=== PATIENT | male | born 1975 | race African-American/Black ===

== ENCOUNTER 2016-07-04 01:45 | Inpatient (IN) | payer OTHER ==
--- NOTE | 2016-07-04 01:58 | PDOC ---
History of Present Illness - General History Source: Patient Exam Limitations: No Limitations - History of Present Illness Initial Comments: 07/04/16 02:18 The patient is a 40 year old male with significant past medical history of hypertension and recent diagnosis from last admission (06/27/16) of pneumonia, CHF , and COPD who presents to the ED with 3 days of worsening productive cough and SOB. Patient was seen here in the ER on 06/27 for SOB and palpitations. At the time, he was admitted for pneumonia and CHF where he was worked-up and diagnosed with pneumonia, chf, and copd. He was treated and discharged on 06/30. He returns today for worsening productive cough with yellow sputum and SOB. Patient denies fever, chills, diaphoresis, lightheadedness, leg swelling, or chest pain. He reports taking his medications that he was prescribed from his last admission except the antibiotics. Admits to having a cigarettes 2 days ago. Patient reports he is feeling a little better than his original presentation from his last visit. He is now able to lay down as compared to his previous admission. The patient denies abdominal pain, nausea, vomiting, and diarrhea. Allergies: NKDA Social History: Current smoker (PPD), etoh use. Past Surgical History: None reported PCP: Dr. Jarrod Pichardo <Ernestina Richter - Last Filed: 07/04/16 02:52> - General History Source: Patient <KaceySharriDevon - Last Filed: 07/04/16 03:32> - General Stated Complaint: DIFFICULTY BREATHING,COUGHING Time Seen by Provider: 07/04/16 01:56 Past History <Ernestina Richter - Last Filed: 07/04/16 02:52> - Past Medical History HTN: Yes - Psycho/Social/Smoking Cessation Hx Suicidal Ideation: No Smoking History: Current every day smoker Have you smoked in the past 12 months: No Number of Cigarettes Smoked Daily: 20 'Breaking Loose' booklet given: 06/27/16 Hx Alcohol Use: Yes (BEERS/ALCOHOL-06/26/16) Drug/Substance Use Hx: No Substance Use Type: Alcohol <Devon Barreto - Last Filed: 07/04/16 03:32> - Past Medical History Allergies/Adverse Reactions: Allergies Allergy/AdvReac Type Severity Reaction Status Date / Time No Known Allergies Allergy Verified 07/04/16 01:59 Home Medications: Ambulatory Orders Mineral Oil/Pet Hy-Phl [Aquaphor -] 1 applic TP BID #1 jar 06/29/16 Thiamine HCl [Vitamin B1 -] 100 mg PO BID #0 tablet 06/29/16 Amlodipine Besylate [Norvasc -] 10 mg PO DAILY #30 06/30/16 Ferrous Sulfate [Feosol] 325 mg PO BID #60 tablet 06/30/16 Review of Systems - Review of Systems Able to Perform ROS?: Yes Comments:: 07/04/16 02:18 CONSTITUTIONAL: Absent: fever, chills, diaphoresis, generalized weakness, malaise, loss of appetite HEENT: Absent: rhinorrhea, nasal congestion, throat pain, throat swelling, difficulty swallowing, mouth swelling, ear pain, eye pain, visual Changes CARDIOVASCULAR: Absent: chest pain, syncope, palpitations, irregular heart rate, lightheadedness , peripheral edema RESPIRATORY: +SOB and productive cough with yellow sputum Absent: dyspnea with exertion, orthopnea, wheezing, stridor, hemoptysis GASTROINTESTINAL: Absent: abdominal pain, abdominal distension, nausea, vomiting, diarrhea, constipation, melena, hematochezia GENITOURINARY: Absent: dysuria, frequency, urgency, hesitancy, hematuria, flank pain, genital pain MUSCULOSKELETAL: Absent: myalgia, arthralgia, joint swelling SKIN: Absent: rash, itching, pallor NEUROLOGIC: Absent: headache, focal weakness or paresthesias, dizziness, unsteady gait, seizure, mental status changes, bladder or bowel incontinence PSYCHIATRIC: Absent: anxiety, depression, suicidal or homicidal ideation, hallucinations. <Ernestina Richter - Last Filed: 07/04/16 02:52> *Physical Exam - Vital Signs Last Vital Signs Temp Pulse Resp BP Pulse Ox 98.3 F 130 H 28 H 154/103 93 L 07/04/16 02:00 07/04/16 02:00 07/04/16 02:00 07/04/16 02:00 07/04/16 02:00 - Physical Exam Comments: 07/04/16 02:18 GENERAL: Well developed, well nourished. Awake and alert. No acute distress. HEENT: Normocephalic, atraumatic. PERRLA, EOMI. No conjunctival pallor. Sclera are non- icteric. Moist mucous membranes. Oropharynx is clear. NECK: Supple. Full ROM. No JVD. Carotid pulses 2+ and symmetric, without bruits. No thyromegaly. No lymphadenopathy. CARDIOVASCULAR: Tachycardia. Regular rhythm. No murmurs, rubs, or gallops. Distal pulses are 2+ and symmetric. PULMONARY: Moderate respiratory distress. Decreased breath sounds bilaterally. Mild conversational dyspnea. Scattered wheezing. No rales or rhonchi. ABDOMINAL: Soft. Non-tender. Non-distended. No rebound or guarding. No organomegaly. Normoactive bowel sounds. MUSCULOSKELETAL Normal range of motion at all joints. No bony deformities or tenderness. No CVA tenderness. EXTREMITIES: No cyanosis. No clubbing. No edema. No calf tenderness. SKIN: Warm and dry. Normal capillary refill. No rashes. No jaundice. NEUROLOGICAL: Alert, awake, appropriate. Cranial nerves 2-12 intact. Moving all extremities. No gross focal neurological deficits. PSYCHIATRIC: Cooperative. Good eye contact. Appropriate mood and affect. <Ernestina Richter - Last Filed: 07/04/16 02:52> Heart Score/ECG Review - ECG Impressions Comment:: 07/04/16 02:52 Sinus tachycardia @121bpm Possible left atrial enlargement Left ventricular hypertrophy with repolarization abnormality Abnormal ECG <Ernestina Richter - Last Filed: 07/04/16 02:52> ED Treatment Course - LABORATORY CBC & Chemistry Diagram: 07/04/16 02:10 07/04/16 02:10 <Ernestina Richter - Last Filed: 07/04/16 02:52> - LABORATORY CBC & Chemistry Diagram: 07/04/16 02:10 07/04/16 02:10 <Devon Barreto - Last Filed: 07/04/16 03:32> Medical Decision Making - Medical Decision Making 07/04/16 03:13 Dr. Barreto: The scribe's documentation has been prepared under my direction and personally reviewed by me in its entirery. I confirm that the note above accurately reflects all work, treatment, procedures, and medical decision making performed by me. Pt returns with similar symptoms of the chf and pneumonia as he had his last admission. Pt states he was not able to afford the antibiotic. Will readmit 07/04/16 03:31 Pt IV access has been difficult. Pt will have PICC line placed in the morning. Hospitalist service aware <Devon Barreto - Last Filed: 07/04/16 03:32> *DC/Admit/Observation/Transfer - Attestations Scribe Attestion: 07/04/16 02:18 Documentation prepared by Ernestina Richter, acting as certified medical transcriptionist for Devon Barreto MD <Ernestina Richter - Last Filed: 07/04/16 02:52> - Discharge Dispostion Admit: Yes <Devon Barreto - Last Filed: 07/04/16 03:32> Diagnosis at time of Disposition: Acute eczema CHF (congestive heart failure) Qualifiers: Congestive heart failure chronicity: acute on chronic Pneumonia Qualifiers: Pneumonia type: due to unspecified organism Laterality: bilateral Lung location : lower lobe of lung Qualified Code(s): J18.9 - Pneumonia, unspecified organism - Referrals Referrals: Jarrod Pichardo MD [Primary Care Provider] -
[2016-07-04] MEDS ORDERED: methylPREDNISolone NA SUCC 125 MG/2 ML VIAL IVPB ONE (01:59)
[2016-07-04] MEDS ORDERED: ALBUTEROL SO4 2.5/IPRATROPIUM 0.5 INH SOL 3 ML VIAL.NEB. NEB STA ×2 (01:59→03:50)
[2016-07-04] MEDS ORDERED: FUROSEMIDE 40 MG/4 ML INJECTABLE VIAL IVPUSH ONE (01:59)
[2016-07-04] MEDS ORDERED: LEVOFLOXACIN 750 MG IVPB 150 ML IVPB ONE (02:00)
[2016-07-04] MEDS ORDERED: methylPREDNISolone NA SUCC 125 MG/2 ML VIAL ONE (02:07)
[2016-07-04] MEDS ORDERED: FUROSEMIDE 40 MG/4 ML INJECTABLE VIAL ONE (02:07)
[2016-07-04 02:15] VITALS: BMI 24.4
[2016-07-04 02:37] LABS: EOSINOPHIL 2.9 % (0-4.5); MCH 32.1 pg (25.7-33.7); MCHC 32.6 g/dl (32.0-35.9); MEAN CELL VOLUME 98.4 fl (80-96); MEAN PLT VOLUME 7.9 fl (7.5-11.1); NEUTROPHILS 69.9 % (42.8-82.8); PLATELET COUNT 437 K/MM3 (134-434); WHITE BLOOD COUNT 10.1 K/mm3 (4.0-10.0)
[2016-07-04] MEDS ORDERED: FUROSEMIDE 20 MG TABLET (FP) PO ONE (02:40)
[2016-07-04] MEDS ORDERED: LEVOFLOXACIN 250 MG TABLET (FP) PO ONE (02:41)
[2016-07-04] MEDS ORDERED: predniSONE 20 MG TABLET (UD) PO ONE (02:41)
[2016-07-04 02:44] LABS: INR 1.06 (0.82-1.09); PROTHROMBIN TIME (PATIENT) 11.7 SEC (9.98-11.88)
[2016-07-04 02:54] LABS: ALBUMIN 2.3 g/dl (3.4-5.0); ANION GAP 12 (8-16); BILIRUBIN,TOTAL 0.2 mg/dL (0.2-1.0); CO2 24 mmol/L (21-32); CREATININE 0.9 mg/dL (0.7-1.3); GLUCOSE,RANDOM 96 mg/dL (74-106); MAGNESIUM 1.6 mg/dL (1.8-2.4); SGOT/AST 24 U/L (15-37); SGPT/ALT 17 U/L (12-78); TOT PROT 7.6 g/dl (6.4-8.2)
[2016-07-04 02:57] LABS: ALK PHOS 75 U/L (45-117); TROPONIN I 0.02 ng/ml (0.00-0.05)
[2016-07-04] MEDS ORDERED: predniSONE 20 MG TABLET (UD) ONE (03:03)
[2016-07-04] MEDS ORDERED: LEVOFLOXACIN 500 MG TABLET (FP) ONE (03:04)
[2016-07-04] MEDS ORDERED: LEVOFLOXACIN 250 MG TABLET (FP) ONE (03:04)
[2016-07-04] MEDS ORDERED: FUROSEMIDE 40 MG TABLET (FP) ONE (03:04)
[2016-07-04] MEDS ORDERED: POTASSIUM CHLORIDE TABS 20 MEQ TABLET.ER (FP) PO ONE ×3 (03:17→10:00)
--- NOTE | 2016-07-04 03:26 | PN ---
<Coy Perez - Last Filed: 07/04/16 04:24> Teaching Attending Note ATTENDING PHYSICIAN STATEMENT I saw and evaluated the patient. I reviewed the resident's note and discussed the case with the resident. I agree with the resident's findings and plan as documented. SUBJECTIVE: The patient is a 40 year old male, current smoker, with significant past medical history of eczema, microcytic anemia, EtOH abuse,who presents to the ED with 3 days of worsening productive cough and SOB. Recent admission on 06/27/16 for pneumonia. The patient reported that his cough produces yellow sputum. Patient was unable to finish his PO antibiotics prescribed from his previous admission due to his inability to afford the. The patient denies abdominal pain, nausea, vomiting, and diarrhea, fever, chills , diaphoresis, lightheadedness, leg swelling, or chest pain. OBJECTIVE: Vital Signs: Last Vital Signs Temp Pulse Resp BP Pulse Ox 98.3 F 130 H 28 H 154/103 93 L 07/04/16 02:00 07/04/16 02:00 07/04/16 02:00 07/04/16 02:00 07/04/16 02:00 Physical Exam: GEN: NAD HEENT: NCAT, PERRL CARD: Tachycardic S1 S2 RESP: CTAB ABD: NT, BWS x4 EXT: - CCE SKIN: Diffuse eczema bilateral upper and lower extremities. Labs: CBCD WBC 10.1 K/mm3 (4.0-10.0) H D 07/04/16 02:10 RBC 2.79 M/mm3 (4.00-5.60) L 07/04/16 02:10 Hgb 9.0 GM/dL (11.7-16.9) L 07/04/16 02:10 Hct 27.4 % (35.4-49) L 07/04/16 02:10 MCV 98.4 fl (80-96) H 07/04/16 02:10 MCHC 32.6 g/dl (32.0-35.9) 07/04/16 02:10 RDW 17.0 % (11.9-15.9) H 07/04/16 02:10 Plt Count 437 K/MM3 (134-434) H D 07/04/16 02:10 MPV 7.9 fl (7.5-11.1) 07/04/16 02:10 CMP Sodium 142 mmol/L (136-145) 07/04/16 02:10 Potassium 3.2 mmol/L (3.5-5.1) L 07/04/16 02:10 Chloride 106 mmol/L (98-107) 07/04/16 02:10 Carbon Dioxide 24 mmol/L (21-32) 07/04/16 02:10 Anion Gap 12 (8-16) 07/04/16 02:10 BUN 4 mg/dL (7-18) L D 07/04/16 02:10 Creatinine 0.9 mg/dL (0.7-1.3) 07/04/16 02:10 Creat Clearance w eGFR > 60 (>60) 07/04/16 02:10 Calcium 8.0 mg/dL (8.5-10.1) L 07/04/16 02:10 Total Bilirubin 0.2 mg/dL (0.2-1.0) D 07/04/16 02:10 AST 24 U/L (15-37) 07/04/16 02:10 ALT 17 U/L (12-78) 07/04/16 02:10 Alkaline Phosphatase 75 U/L (45-117) 07/04/16 02:10 Total Protein 7.6 g/dl (6.4-8.2) D 07/04/16 02:10 Albumin 2.3 g/dl (3.4-5.0) L D 07/04/16 02:10 Imagin.CXR Impression: Bilateral patchy infiltrates and mild congestion. 2. ECG Impression: sinus tachycardia. Possible left atrial enlargement. Left ventricular hypertrophy with repolarization abnormality. Abnormal ECG. ASSESSMENT AND PLAN: The patient is a 40 year old male who presents with sepsis secondary to pneumonia. 1. Sepsis secondary to pneumonia. Questionable hcap. -Questionable atypical pneumonia on CT from prior admission -Continue levaquin for atypical pneumonia as patient to not finishing his treatment -If no improvement consider broadening coverage -Repeat lactic acid -Galvez culture -Patient unwilling to get central line -Picc line in AM for IV antibiotics -Urine legionella analysis negative -ID consult if worsening 2. CHF? -IV lasix -Strict I&O -Daily weights -Echo complete -Sodium diet 3. History of EtOH dependence -Finish librium protocol 4. Eczema -Continue bactroban, triamcinolone, aquaphor 5. HTN -Continue Amlodipine 6. Macrocytic anemia -Monitor -Continue Thymine 7. DVT PPX-low risk Heparin 5000 Q8H Admit to med tele. Documentation prepared by Coy Perez, acting as medical consultant for Dr. Jerald Jerez MD. <Jerald Jerez - Last Filed: 07/04/16 06:16> Teaching Attending Note Name of Resident: Autumn Garzon
[2016-07-04] MEDS ORDERED: METOPROLOL SUCCINATE 25 MG TAB.SR.24H (FP) PO ONE (03:58)
[2016-07-04] MEDS ORDERED: MAGNESIUM OXIDE 400 MG TABLET (FP) PO ONE (03:58)
--- NOTE | 2016-07-04 04:06 | HP ---
CHIEF COMPLAINT: Worsening cough and shortness of breath PCP: Dr. Jarrod Fregoso HISTORY OF PRESENT ILLNESS: Patient is a 40 year old male who presented to the ED with the chief complaints of worsening shortness of breath and cough since this morning. Patient was discharged on 06/27/2016 with the diagnosis of pneumonia, was discharged on Levaquin and to f/up with the primary doctor within a week. However, patient mentioned he never took Levaquin since he couldn't afford 200 $ for the medication. Says he didn't follow up with his primary. Until this morning, patient mentions he was fine. But started having dry cough with worsening shortness of breath at rest and exertion. No orthopnea or PND. Also reports to have chills and rigors but no fever. Denies chest pain, palpitation, abdominal pain, nausea or vomiting. Bowel/bladder habit normal. Sleep/Appetite normal. ER course was notable for: (1) Afebrile, Tachycardic 130bpm, Hypertensive 154/103, 28 RR, Spo2-93 (2) Hypokalemia 3.2; Hypomagnesemia 1.6, BNP 4760.55 (3) No IV access. Received PO Lasix 60mg, K-Dur 40mg, Prednisone 60mg, Duoneb Recent Travel: None PAST MEDICAL HISTORY: Hypertension, CHF, COPD, Pneumonia, Eczema, alcohol dependence PAST SURGICAL HISTORY: None Social History: Smoking: Quit 2 days ago, smoked 7-10 cigs/day Alcohol: Quit 2 weeks ago, went for detox Drugs: Denies Family History: Mother and father both have Hypertension Allergies No Known Allergies Allergy (Verified 07/04/16 01:59) HOME MEDICATIONS: Home Medications Medication Instructions Recorded Mineral Oil/Pet Hy-Phl [Aquaphor -] 1 applic TP BID #1 jar 06/29/16 Thiamine HCl [Vitamin B1 -] 100 mg PO BID #0 tablet 06/29/16 Amlodipine Besylate [Norvasc -] 10 mg PO DAILY #30 06/30/16 Ferrous Sulfate [Feosol] 325 mg PO BID #60 tablet 06/30/16 REVIEW OF SYSTEMS CONSTITUTIONAL: Present: Chills, rigors Absent: fever,diaphoresis, generalized weakness, malaise, loss of appetite, weight change HEENT: Absent: rhinorrhea, nasal congestion, throat pain, throat swelling, difficulty swallowing, mouth swelling, ear pain, eye pain, visual changes CARDIOVASCULAR: Absent: chest pain, syncope, palpitations, irregular heart rate, lightheadedness , peripheral edema RESPIRATORY:] Present: cough, shortness of breath, dyspnea with exertion Absent: , orthopnea, wheezing, stridor, hemoptysis GASTROINTESTINAL: Absent: abdominal pain, abdominal distension, nausea, vomiting, diarrhea, constipation, melena, hematochezia GENITOURINARY: Absent: dysuria, frequency, urgency, hesitancy, hematuria, flank pain, genital pain MUSCULOSKELETAL: Absent: myalgia, arthralgia, joint swelling, back pain, neck pain SKIN: Absent: rash, itching, pallor HEMATOLOGIC/IMMUNOLOGIC: Absent: easy bleeding, easy bruising, lymphadenopathy, frequent infections ENDOCRINE: Absent: unexplained weight gain, unexplained weight loss, heat intolerance, cold intolerance NEUROLOGIC: Absent: headache, focal weakness or paresthesias, dizziness, unsteady gait, seizure, mental status changes, bladder or bowel incontinence PSYCHIATRIC: Absent: anxiety, depression, suicidal or homicidal ideation, hallucinations. PHYSICAL EXAMINATION Vital Signs - 24 hr 07/04/16 02:00 Temperature 98.3 F Pulse Rate 130 H Respiratory 28 H Rate Blood Pressure 154/103 O2 Sat by Pulse 93 L Oximetry (%) GENERAL: Patient is normal built, tachypneic, Awake, alert, and fully oriented, in no acute distress. HEAD: Normal with no signs of trauma. EYES: Pupils equal, round and reactive to light, extraocular movements intact, sclera anicteric, conjunctiva clear. No lid lag. EARS, NOSE, THROAT: Ears normal, nares patent, oropharynx clear without exudates. Moist mucous membranes. NECK: Normal range of motion, supple without lymphadenopathy, JVD, or masses. LUNGS: Tachypenic, Breath sounds equal, B/l basilar crackles HEART: Tachycardic, Regular rate and rhythm, normal S1 and S2 without murmur, rub or gallop. ABDOMEN: Soft, nontender, not distended, normoactive bowel sounds, no guarding, no rebound, no masses. No hepatomegaly or splenomegaly. MUSCULOSKELETAL: Normal range of motion at all joints. No bony deformities or tenderness. No CVA tenderness. UPPER EXTREMITIES: 2+ pulses, warm, well-perfused. No cyanosis. No clubbing. Cap refill <2 seconds. No peripheral edema. LOWER EXTREMITIES: 2+ pulses, warm, well-perfused. No calf tenderness. No peripheral edema. NEUROLOGICAL: Cranial nerves II-XII intact. Normal speech. Normal gait. PSYCHIATRIC: Cooperative. Good eye contact. Appropriate mood and affect. SKIN: Warm, dry, cracked skin head to toe Laboratory Results - last 24 hr 07/04/16 07/04/16 07/04/16 02:10 02:10 02:10 WBC 10.1 H D RBC 2.79 L Hgb 9.0 L Hct 27.4 L MCV 98.4 H MCHC 32.6 RDW 17.0 H Plt Count 437 H D MPV 7.9 Neutrophils % 69.9 Lymphocytes % 14.6 D Monocytes % 11.6 H Eosinophils % 2.9 D Basophils % 1.0 INR 1.06 Sodium Potassium Chloride Carbon Dioxide Anion Gap BUN Creatinine Creat Clearance w eGFR Random Glucose Lactic Acid Calcium Magnesium Total Bilirubin AST ALT Alkaline Phosphatase Creatine Kinase Troponin I B-Natriuretic Peptide Total Protein Albumin Lipase Blood Type O POSITIVE Antibody Screen Negative 07/04/16 07/04/16 02:10 02:10 WBC RBC Hgb Hct MCV MCHC RDW Plt Count MPV Neutrophils % Lymphocytes % Monocytes % Eosinophils % Basophils % INR Sodium 142 Potassium 3.2 L Chloride 106 Carbon Dioxide 24 Anion Gap 12 BUN 4 L D Creatinine 0.9 Creat Clearance w eGFR > 60 Random Glucose 96 Lactic Acid 1.724 Calcium 8.0 L Magnesium 1.6 L Total Bilirubin 0.2 D AST 24 ALT 17 Alkaline Phosphatase 75 Creatine Kinase 76 Troponin I 0.02 B-Natriuretic Peptide 4760.55 H Total Protein 7.6 D Albumin 2.3 L D Lipase 124 Blood Type Antibody Screen ASSESSMENT/PLAN: Patient is a 40 year old male with significant past medical history of Hypertension, CHF, COPD, Pneumonia, Eczema, alcohol dependence who presented to the ED with the chief complaints of worsening shortness of breath and cough since this morning. # Sepsis secondary to Community acquired pneumonia Rule out atypical pneumonia CURB 65-1 Patient presented with worsening shortness of breath and cough. Non compliant to levaquin On arrival, Afebrile, Tachycardic 130bpm, Hypertensive 154/103, 28 RR, Spo2- 93 In the ED, after multiple attempts, couldn't find IV access. Received PO Lasix 60mg, K-Dur 40mg, Prednisone 60mg, Duoneb Admitted in non-cardiac Tele Continuous cardiac monitor technician Continue with IV Levaquin since patient didn't complete levaquin Urine legionella analysis negative Mycoplasma IgM ordered Would consider placing a PICC line. # CHF exacerbation Unsure if the shortness of breath is due to worsening pneumonia or due to CHF exacerbation BNP-4760.55 Will order an ECHO since patient didn't have it the last time. # Electrolyte imbalance Hypokalemia 3.2; Hypomagnesemia 1.6 Repleted Repeat at 6am. # Hypertension ordered Metoprolol 25mg stat. Continue Amlodipine 10mg Monitor BP # Alcohol dependence No s/s of withdrawals at this time. Would consider starting him on Librium protocol # COPD- Saturation 93 on arrival, improved with Nasal oxygen Continue nasal oxygen Not on home oxygen Smoking cessation counseling # Eczema Continue Mineral oil Hydrate, moisturize and maintain hygiene # FEN Not on IV fluids Electrolytes to be repeated tomorrow Regular diet # Prophylaxis For DVT: For GI: Not indicated # Code status: Full Code # Dispo: Non cardiac tele. Duration of stay unknown. Illness, Investigation and plan of care explained to the patient. He verbalized understanding. Case seen and discussed with Dr. Jerez. Visit type - Emergency Visit Emergency Visit: Yes ED Registration Date: 07/04/16 Care time: The patient presented to the Emergency Department on the above date and was hospitalized for further evaluation of their emergent condition. - New Patient This patient is new to me today: Yes Date on this admission: 07/04/16 - Critical Care Critical Care patient: No
[2016-07-04] MEDS ORDERED: METOPROLOL SUCCINATE 50 MG TAB.SR.24H (FP) ONE (04:27)
[2016-07-04] MEDS ORDERED: ALBUTEROL SO4 2.5/IPRATROPIUM 0.5 INH SOL 3 ML VIAL.NEB. NEB ONE (04:28)
[2016-07-04] MEDS ORDERED: MAGNESIUM OXIDE 400 MG TABLET (FP) ONE (04:28)
[2016-07-04 06:19] LABS: BASOPHIL 0.4 % (0-2.0); EOSINOPHIL 0.1 % (0-4.5); MCH 31.9 pg (25.7-33.7); MCHC 32.8 g/dl (32.0-35.9); MEAN CELL VOLUME 97.4 fl (80-96); MEAN PLT VOLUME 7.8 fl (7.5-11.1); NEUTROPHILS 91.9 % (42.8-82.8); PLATELET COUNT 440 K/MM3 (134-434); RDW 16.9 % (11.9-15.9); WHITE BLOOD COUNT 8.3 K/mm3 (4.0-10.0)
[2016-07-04 06:20] LABS: URINE APPEARANCE CLEAR; URINE BILIRUBIN NEGATIVE (NEGATIVE); URINE BLOOD NEGATIVE (NEGATIVE); URINE COLOR COLORLESS; URINE GLUCOSE (UA) NEGATIVE (NEGATIVE); URINE KETONE NEGATIVE (NEGATIVE); URINE LEUK ESTERASE NEGATIVE (NEGATIVE); URINE NITRITE NEGATIVE (NEGATIVE); URINE PROTEIN NEGATIVE (NEGATIVE); URINE UROBILINOGEN NEGATIVE E.U./dl (0.2-1.0)
[2016-07-04 06:49] LABS: MAGNESIUM 1.5 mg/dL (1.8-2.4); PHOSPHOROUS 2.8 mg/dL (2.5-4.9)
[2016-07-04 06:52] LABS: ALBUMIN 2.4 g/dl (3.4-5.0); ANION GAP 11 (8-16); BILIRUBIN,TOTAL 0.3 mg/dL (0.2-1.0); CALCIUM 7.9 mg/dL (8.5-10.1); CO2 27 mmol/L (21-32); GLUCOSE,RANDOM 149 mg/dL (74-106); SGOT/AST 19 U/L (15-37); SGPT/ALT 21 U/L (12-78); TOT PROT 7.7 g/dl (6.4-8.2)
[2016-07-04 06:53] LABS: ALK PHOS 66 U/L (45-117)
[2016-07-04] MEDS ORDERED: FUROSEMIDE 40 MG TABLET (FP) PO ONE (09:00)
[2016-07-04] MEDS: THIAMINE HCL 100 MG TABLET (FP) PO SCH ×2 (09:52→21:26)
[2016-07-04] MEDS: FERROUS SO4 325 MG TABLET (FP) PO SCH ×2 (09:52→21:26)
[2016-07-04] MEDS: amLODIPine BESYLATE 10 MG TABLET (FP) PO SCH (09:52)
[2016-07-04] MEDS: LEVOFLOXACIN 750 MG IVPB 150 ML IVPB SCH (09:52)
[2016-07-04] MEDS: HEPARIN NA (PORCINE) 5,000 UNITS/ML 1ML VIAL SQ SCH ×2 (09:53→17:44)
--- NOTE | 2016-07-04 11:55 | PN ---
<Jason Hebert - Last Filed: 07/04/16 12:39> Physical Exam: SUBJECTIVE: Patient seen and examined Pt is awake andlert and oriented no s.s of acute distress no fever or chills, cough no chest or sob Minimal gen weakness no chest pain or palpitation Pt said he did not have insurance to pay for the antibiotics OBJECTIVE: Vital Signs Period Temp Pulse Resp BP Sys/Wright Pulse Ox Last 24 Hr 98.1 F-98.1 F 106-113 19-24 128-130/79-80 100 GENERAL: The patient is awake, alert, and fully oriented, in no acute distress. HEAD: Normal with no signs of trauma. EYES: PERRL, extraocular movements intact, sclera anicteric, conjunctiva clear. No ptosis. ENT: Ears normal, nares patent, oropharynx clear without exudates, moist mucous membranes. NECK: Trachea midline, full range of motion, supple. LUNGS: b/l crackles in bases, b/l scattred rochi. no accessory muscle use. HEART: Regular rate and rhythm, S1, S2 without murmur, rub or gallop. ABDOMEN: Soft, nontender, nondistended, normoactive bowel sounds, no guarding, no rebound, no hepatosplenomegaly, no masses. EXTREMITIES: 2+ pulses, warm, well-perfused, no edema. NEUROLOGICAL: Normal speech, gait not observed. PSYCH: Normal mood, normal affect. SKIN: Warm, dry, poor skin turgor, scaly skin Laboratory Results - last 24 hr 07/04/16 07/04/16 07/04/16 05:38 05:38 05:38 WBC 8.3 RBC 2.81 L Hgb 9.0 L Hct 27.4 L MCV 97.4 H MCHC 32.8 RDW 16.9 H Plt Count 440 H MPV 7.8 Neutrophils % 91.9 H D Lymphocytes % 5.9 L D Monocytes % 1.7 L D Eosinophils % 0.1 D Basophils % 0.4 Sodium Potassium Chloride Carbon Dioxide Anion Gap BUN Creatinine Creat Clearance w eGFR Random Glucose Calcium Phosphorus 2.8 Magnesium 1.5 L Total Bilirubin AST ALT Alkaline Phosphatase Total Protein Albumin Urine Color Urine Appearance Urine pH Ur Specific [place] Urine Protein Urine Glucose (UA) Urine Ketones Urine Blood Urine Nitrite Urine Bilirubin Urine Urobilinogen Ur Leukocyte Esterase Blood Type O POSITIVE 07/04/16 07/04/16 05:38 06:05 WBC RBC Hgb Hct MCV MCHC RDW Plt Count MPV Neutrophils % Lymphocytes % Monocytes % Eosinophils % Basophils % Sodium 142 Potassium 3.2 L Chloride 104 Carbon Dioxide 27 Anion Gap 11 BUN 6 L D Creatinine 1.0 Creat Clearance w eGFR > 60 Random Glucose 149 H D Calcium 7.9 L Phosphorus Magnesium Total Bilirubin 0.3 D AST 19 D ALT 21 D Alkaline Phosphatase 66 Total Protein 7.7 Albumin 2.4 L Urine Color Colorless Urine Appearance Clear Urine pH 6.0 Ur Specific [place] 1.003 Urine Protein Negative Urine Glucose (UA) Negative Urine Ketones Negative Urine Blood Negative Urine Nitrite Negative Urine Bilirubin Negative Urine Urobilinogen Negative Ur Leukocyte Esterase Negative Blood Type Active Medications Generic Name Dose Route Start Last Admin Trade Name Freq PRN Reason Stop Dose Admin Amlodipine Besylate 10 mg 07/04/16 10:00 07/04/16 09:52 Norvasc - PO 10 mg DAILY ARMEN Administration Emollient Ointment 1 applic 07/04/16 10:00 Aquaphor - TP BID ARMEN Ferrous Sulfate 325 mg 07/04/16 10:00 07/04/16 09:52 Feosol - PO 325 mg BID ARMEN Administration Heparin Sodium (Porcine) 5,000 unit 07/04/16 10:00 07/04/16 09:53 Heparin - SQ 5,000 unit Q8H-IV ARMEN Administration Levofloxacin 150 mls @ 100 mls/hr 07/04/16 10:00 07/04/16 09:52 Levaquin 750 Mg Premixed Ivpb - IVPB 100 mls/hr DAILY ARMEN Administration Thiamine HCl 100 mg 07/04/16 10:00 07/04/16 09:52 Vitamin B1 - PO 100 mg BID ARMEN Administration CBC, BMP 07/04/16 05:38 07/04/16 05:38 ASSESSMENT/PLAN: 40 year old male with pmh HTN, Eczema recently admitted for b/l pneumonia discharge on PO Levaquin present with shortness of breath, cough, tachypnea, tachycardia. Pt did not take antibiotics upon discharge. Sepsis from B/l Pneumonia No more shortness of breath, no chest pain, no more cough Pt was non compliant to antibiotics on last discharge Continue IV levaquin 750mg daily will switch to PO Levaquin 750mg PO daily on discharge F/u new Cultures Urine for pneumonia antigens ordered [place] Was tachycardic on last admission Possible causes included sepsis/pneumonia/hypoxia. 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 Mg 1.5 Kcl 40meq Po once MgSO4 1gm IV once HTN BP controlled on Norvasc mg PO daily FEN fluid: none Electrolytes: repeat in am Nutrition: Low Na diet Disposition: discharge in am on PO antibiotics if negative echo and clinically stable Visit type - Emergency Visit Emergency Visit: Yes ED Registration Date: 07/04/16 Care time: The patient presented to the Emergency Department on the above date and was hospitalized for further evaluation of their emergent condition. - New Patient This patient is new to me today: Yes Date on this admission: 07/04/16 - Critical Care Critical Care patient: No - Discharge Referral Referred to [facility] No <Oscar Turcios - Last Filed: 07/04/16 13:37> Physical Exam: ATTENDING PHYSICIAN STATEMENT I saw and evaluated the patient. I reviewed the resident's note and discussed the case with the resident. I agree with the resident's findings and plan as documented. SUBJECTIVE: seen and evaluated at the bedside OBJECTIVE: resting comfortably; mild rhonchi in LLL ASSESSMENT AND PLAN: 40 year old man admitted for community acquired pneumonia -pt failed to fill levofloxacin prescription as an outpatient -now resting comfortably and clinically stable -cont levofloxacin as pt did not fail outpatient therapy -anticipate early discharge
[2016-07-04] MEDS ORDERED: MAGNESIUM SULF 50% (8.12 MEQ/2 ML-1 GM VIAL) IVPB ONE (12:30)
[2016-07-04] MEDS ORDERED: POTASSIUM CHLORIDE 40 MEQ/30 ML UNIT DOSE CUP PO ONE (12:45)
--- NOTE | 2016-07-04 12:48 | CONSULT ---
Consult Consult Specialty:: infectious diseases Reason for Consultation:: pneumonia - History of Present Illness Chief Complaint: sob,cough History of Present Illness: 40 year old male who presented with the chief complaints of worsening shortness of breath and cough since this morning. Patient was discharged on 06/27/2016 with the diagnosis of pneumonia, was discharged on Levaquin and to f/up with the primary doctor within a week. However, patient mentioned he never took Levaquin since he couldn't afford 200 $ for the medication. patient went home and did not follow up with his doctor patient then started having chills with sob and decided to come to the hospital - History Source History Provided By: Patient Limitations to Obtaining History: No Limitations - Past Medical History Dermatology: Yes: Eczema - Alcohol/Substance Use Hx Alcohol Use: Yes (BEERS/ALCOHOL-06/26/16) - Smoking History Smoking history: Current every day smoker Have you smoked in the past 12 months: Yes Aproximately how many cigarettes per day: 20 Home Medications - Allergies Allergies/Adverse Reactions: Allergies Allergy/AdvReac Type Severity Reaction Status Date / Time No Known Allergies Allergy Verified 07/04/16 01:59 - Home Medications Home Medications: Ambulatory Orders Mineral Oil/Pet Hy-Phl [Aquaphor -] 1 applic TP BID #1 jar 06/29/16 Thiamine HCl [Vitamin B1 -] 100 mg PO BID #0 tablet 06/29/16 Amlodipine Besylate [Norvasc -] 10 mg PO DAILY #30 06/30/16 Ferrous Sulfate [Feosol] 325 mg PO BID #60 tablet 06/30/16 Review of Systems - Review of Systems Constitutional: reports: No Symptoms Eyes: reports: No Symptoms HENT: reports: No Symptoms Neck: reports: No Symptoms Cardiovascular: reports: No Symptoms Respiratory: reports: Cough, SOB Musculoskeletal: reports: No Symptoms Integumentary: reports: No Symptoms Neurological: reports: No Symptoms Endocrine: reports: No Symptoms Hematology/Lymphatic: reports: No Symptoms Psychiatric: reports: No Symptoms Physical Exam Vital Signs: Vital Signs Temperature 98.1 F 07/04/16 08:40 Pulse Rate 106 H 07/04/16 11:27 Respiratory Rate 24 07/04/16 10:17 Blood Pressure 130/79 07/04/16 10:17 O2 Sat by Pulse Oximetry (%) 100 07/04/16 11:27 Constitutional: Yes: Calm, Mild Distress, Thin Eyes: Yes: Conjunctiva Clear Neck: Yes: Supple, Trachea Midline Cardiovascular: Yes: Regular Rate and Rhythm Respiratory: Yes: Regular, Poor Air Entry, Rhonchi Gastrointestinal: Yes: Normal Bowel Sounds, Soft Musculoskeletal: Yes: WNL Extremities: Yes: WNL Integumentary: Yes: Other (eczema) Neurological: Yes: Alert, Oriented Psychiatric: Yes: Alert Labs: CBC, BMP 07/04/16 05:38 07/04/16 05:38 Imaging - Results Chest X-ray: Report Reviewed, Image Reviewed Assessment/Plan Patient is a 40 year old male with significant past medical history of Hypertension, CHF, COPD, Pneumonia, Eczema, alcohol dependence who presented to the ED with the chief complaints of worsening shortness of breath and cough since this morning. # Sepsis secondary to Community acquired pneumonia # CHF exacerbation # Electrolyte imbalance # Hypertension # Alcohol dependence # COPD- # Eczema plan continue current mgmt will add unasyn incentive stephan
--- NOTE | 2016-07-04 13:29 | EKG ---
Test Reason : Blood Pressure : / mmHG Vent. Rate : 121 BPM Atrial Rate : 121 BPM P-R Int : 132 ms QRS Dur : 080 ms QT Int : 322 ms P-R-T Axes : 064 071 087 degrees QTc Int : 457 ms POOR DATA QUALITY, INTERPRETATION MAY BE ADVERSELY AFFECTED SINUS TACHYCARDIA POSSIBLE LEFT ATRIAL ENLARGEMENT LEFT VENTRICULAR HYPERTROPHY WITH REPOLARIZATION ABNORMALITY ABNORMAL ECG WHEN COMPARED WITH ECG OF 29-JUN-2016 12:38, NO SIGNIFICANT CHANGE WAS FOUND Confirmed by SHY JIMENEZ MD ([id number]) on 07/04/2016 1:28:48 PM Referred By: Confirmed By:SHY JIMENEZ MD
[2016-07-04] MEDS ORDERED: PT OWN MED DRAWER 7, Y5N ONE ×2 (15:08→17:37)
[2016-07-04] MEDS ORDERED: MAGNESIUM SULF 50% (8.12 MEQ/2 ML-1 GM VIAL) ONE (15:20)
[2016-07-04] MEDS ORDERED: POTASSIUM CHLORIDE 40 MEQ/30 ML UNIT DOSE CUP ONE (15:21)
[2016-07-04] MEDS: AMPICILLIN NA/SULBACTAM NA 3 GM in SODIUM CHLORIDE 100 ML IVPB SCH ×2 (15:24→17:42)
[2016-07-04] MEDS: MINERAL OIL/PET HY-PHL TOPICAL OINTMENT 454 GM JAR TP SCH ×2 (15:24→21:25)
[2016-07-04] MEDS: CARVEDILOL 3.125 MG TABLET (FP) PO SCH (21:26)
[2016-07-04] MEDS ORDERED: ALBUTEROL SO4 2.5/IPRATROPIUM 0.5 INH SOL 3 ML VIAL.NEB. NEB PRN (22:30)
[2016-07-05] MEDS: AMPICILLIN NA/SULBACTAM NA 3 GM in SODIUM CHLORIDE 100 ML IVPB SCH ×3 (02:30→17:51)
[2016-07-05] MEDS ORDERED: PT OWN MED DRAWER 7, Y5N ONE ×4 (03:03→17:47)
[2016-07-05] MEDS: HEPARIN NA (PORCINE) 5,000 UNITS/ML 1ML VIAL SQ SCH ×3 (03:13→17:51)
[2016-07-05] MEDS ORDERED: guaiFENesin/D-METHORPHAN HB 10 ML UNIT-DOSE CUPS PO PRN (03:41)
[2016-07-05] MEDS ORDERED: diphenhydrAMINE HCL 25 MG CAPSULE (FP) PO ONE (04:42)
[2016-07-05] MEDS ORDERED: guaiFENesin/CODEINE 10 ML UNIT-DOSE CUPS PO ONE (04:44)
[2016-07-05 06:33] LABS: CALCIUM 8.3 mg/dL (8.5-10.1); CREATININE 0.9 mg/dL (0.7-1.3); MAGNESIUM 2.2 mg/dL (1.8-2.4)
[2016-07-05] MEDS: CARVEDILOL 3.125 MG TABLET (FP) PO SCH ×2 (10:10→21:13)
[2016-07-05] MEDS: LEVOFLOXACIN 750 MG IVPB 150 ML IVPB SCH (10:10)
[2016-07-05] MEDS: THIAMINE HCL 100 MG TABLET (FP) PO SCH ×2 (10:10→21:13)
[2016-07-05] MEDS: LISINOPRIL 5 MG TABLET (FP) PO SCH (10:10)
[2016-07-05] MEDS: FERROUS SO4 325 MG TABLET (FP) PO SCH ×2 (10:10→21:13)
[2016-07-05] MEDS: amLODIPine BESYLATE 10 MG TABLET (FP) PO SCH (10:10)
[2016-07-05] MEDS: MINERAL OIL/PET HY-PHL TOPICAL OINTMENT 454 GM JAR TP SCH ×2 (10:28→21:13)
--- NOTE | 2016-07-05 11:36 | PN ---
<Jason Hebert - Last Filed: 07/05/16 11:49> Physical Exam: SUBJECTIVE: Patient seen and examined Pt is awake, alert, and fully oriented Pt has dry increased non productive cough No fever or chills C/o of gen weakness OBJECTIVE: Vital Signs Period Temp Pulse Resp BP Sys/Wright Pulse Ox Last 24 Hr 97.3 F-98.6 F 98-118 18-22 118-128/73-98 100 GENERAL: The patient is awake, alert, and fully oriented, in no acute distress. HEAD: Normal with no signs of trauma. EYES: PERRL, extraocular movements intact, sclera anicteric, conjunctiva clear. No ptosis. ENT: Ears normal, nares patent, oropharynx clear without exudates, moist mucous membranes. NECK: Trachea midline, full range of motion, supple. LUNGS: diminished b/l, b/l crackles in bases. No accessory muscle use. HEART: Regular rate and rhythm, S1, S2 without murmur, rub or gallop. ABDOMEN: Soft, nontender, nondistended, normoactive bowel sounds, no guarding, no rebound, no hepatosplenomegaly, no masses. EXTREMITIES: 2+ pulses, warm, well-perfused, no edema. NEUROLOGICAL: Normal speech, gait not observed. PSYCH: Normal mood, normal affect. SKIN: Warm, dry, poor skin turgor, scaly skin Laboratory Results - last 24 hr 07/05/16 05:30 Sodium 142 Potassium 4.2 D Chloride 108 H Carbon Dioxide 25 Anion Gap 9 BUN 10 D Creatinine 0.9 Random Glucose 87 D Calcium 8.3 L Magnesium 2.2 D Active Medications Generic Name Dose Route Start Last Admin Trade Name Freq PRN Reason Stop Dose Admin Albuterol/Ipratropium 1 amp 07/04/16 22:30 07/05/16 00:18 Duoneb - NEB 1 amp Q6H PRN Administration SHORTNESS OF BREATH Amlodipine Besylate 10 mg 07/04/16 10:00 07/05/16 10:10 Norvasc - PO 10 mg DAILY ARMEN Administration Carvedilol 3.125 mg 07/04/16 22:00 07/05/16 10:10 Coreg - PO 3.125 mg BID ARMEN Administration Emollient Ointment 1 applic 07/04/16 10:00 07/05/16 10:28 Aquaphor - TP 1 applic BID ARMEN Administration Ferrous Sulfate 325 mg 07/04/16 10:00 07/05/16 10:10 Feosol - PO 325 mg BID ARMEN Administration Furosemide 40 mg 07/05/16 10:59 Lasix Injection - IVPUSH 07/05/16 11:00 ONCE ONE Guaifenesin 10 ml 07/05/16 03:41 07/05/16 04:00 Robitussin Dm - PO 10 ml Q6H PRN Administration COUGH Heparin Sodium (Porcine) 5,000 unit 07/04/16 10:00 07/05/16 10:10 Heparin - SQ 5,000 unit Q8H-IV ARMEN Administration Levofloxacin 150 mls @ 100 mls/hr 07/04/16 10:00 07/05/16 10:10 Levaquin 750 Mg Premixed Ivpb - IVPB 100 mls/hr DAILY ARMEN Administration Ampicillin Sodium/Sulbactam 100 mls @ 200 mls/hr 07/04/16 13:00 07/05/16 02:30 Sodium 3 gm/ Sodium Chloride IVPB 200 mls/hr Q8H-IV ARMEN Administration Lisinopril 5 mg 07/05/16 10:00 07/05/16 10:10 Prinivil PO 5 mg DAILY ARMEN Administration Thiamine HCl 100 mg 07/04/16 10:00 07/05/16 10:10 Vitamin B1 - PO 100 mg BID ARMEN Administration CBC, BMP 07/04/16 05:38 07/05/16 05:30 Microbiology 07/04/16 02:15 Blood - Peripheral Venous Blood Culture - Preliminary NO GROWTH OBTAINED AFTER 24 HOURS, INCUBATION TO CONTINUE FOR 4 DAYS. 07/04/16 02:10 Blood - Peripheral Venous Blood Culture - Preliminary NO GROWTH OBTAINED AFTER 24 HOURS, INCUBATION TO CONTINUE FOR 4 DAYS. Laboratory Tests 07/05/16 05:30 Potassium 4.2 D Magnesium 2.2 D ASSESSMENT/PLAN: 40 year old male with pmh HTN, Eczema recently admitted for b/l pneumonia discharge on PO Levaquin present with shortness of breath, cough, tachypnea, tachycardia. Pt did not take antibiotics upon discharge. Sepsis from B/l Pneumonia No more shortness of breath, no chest pain, no more cough Pt was non compliant to antibiotics on last discharge Continue IV levaquin 750mg daily ID, Dr Singh added UNasyn F/u new Cultures Urine for pneumonia antigens ordered Acute Systolic Heart failure No JVD seen No lower ext edema BNP 4760 Echo done, showed Left ventricule moderately dilated, Left ventricle systolic function moderately reduced, Severe Septal Hypokinesis, Moderate global hypokinesis, Left atrium, Right atrium moderately dilated, Moderate TR New CXR 07/05/16: With increased congestive changes and infiltrates Start on Coreg 3.125mg po BID LAsix IV 40mg once Lisinopril 5mg PO daily Consider Stress test (persantine) in near future when more stable. Consider cardiology consult Macrocytic Anemia at baseline Alcohol Dependence Completed Librium protocol last week No s/s withdrawal Eczema Short shower and Moisture regularly Aquaphor Emollient Hypokalemia/hypomgnesemia (resolved ) K 4.2 Mg 2.2 repeat in am HTN BP controlled on Norvasc mg PO daily FEN fluid: none Electrolytes: repeat in am Nutrition: Low Na diet DVT: heparin Sq 5000U q8h Disposition: Continue PNA and CHF treatment Visit type - Emergency Visit Emergency Visit: Yes ED Registration Date: 07/04/16 Care time: The patient presented to the Emergency Department on the above date and was hospitalized for further evaluation of their emergent condition. - New Patient This patient is new to me today: No - Critical Care Critical Care patient: No - Discharge Referral Referred to [facility] No <Oscar Turcios - Last Filed: 07/05/16 13:39> Physical Exam: ATTENDING PHYSICIAN STATEMENT I saw and evaluated the patient. I reviewed the resident's note and discussed the case with the resident. I agree with the resident's findings and plan as documented. SUBJECTIVE: seen and evaluated at the bedside OBJECTIVE: resting comfortably; mild rhonchi in LLL ASSESSMENT AND PLAN: 40 year old man admitted for community acquired pneumonia Pneumonia -pt failed to fill levofloxacin prescription as an outpatient -now resting comfortably and clinically stable -cont levofloxacin as pt did not fail outpatient therapy (was also started on ampicillin in addition by ID attending) Chronic Systolic CHF -found to have global hypokinesis most pronounced in septum with LV dilation -likely due to alcohol abuse but will send for nuclear stress when more stable; follow up TSH -has vascular congestion on CXR today and Bibasilar rales on exam -lasix 40 IV today -start beta martinez, LUIS ARMANDO-I, and statin
[2016-07-05] MEDS: FUROSEMIDE 40 MG/4 ML INJECTABLE VIAL IVPUSH ONE ×2 (11:51→17:25)
[2016-07-05 11:56] LABS: THYROID STIMULATING HORMONE 1.52 uIU/ml (0.358-3.74)
[2016-07-05] MEDS ORDERED: FUROSEMIDE 20 MG TABLET (FP) PO SCH (14:00)
[2016-07-06] MEDS: AMPICILLIN NA/SULBACTAM NA 3 GM in SODIUM CHLORIDE 100 ML IVPB SCH ×2 (03:00→09:29)
[2016-07-06] MEDS: HEPARIN NA (PORCINE) 5,000 UNITS/ML 1ML VIAL SQ SCH ×2 (03:00→09:29)
[2016-07-06] MEDS ORDERED: PT OWN MED DRAWER 7, Y5N ONE ×2 (03:08→09:25)
[2016-07-06 06:51] VITALS: TEMP 98.2
[2016-07-06 07:37] VITALS: PULSE 90
--- NOTE | 2016-07-06 08:45 | PN ---
Physical Exam: SUBJECTIVE: Patient seen and examined OBJECTIVE: Vital Signs Period Temp Pulse Resp BP Sys/Wright Pulse Ox Last 24 Hr 98 F-98.6 F 90-112 9-22 103-132/60-84 94-100 GENERAL: The patient is awake, alert, and fully oriented, in no acute distress. HEAD: Normal with no signs of trauma. EYES: PERRL, extraocular movements intact, sclera anicteric, conjunctiva clear. No ptosis. ENT: Ears normal, nares patent, oropharynx clear without exudates, moist mucous membranes. NECK: Trachea midline, full range of motion, supple. LUNGS: Breath sounds equal, clear to auscultation bilaterally, no wheezes, no crackles, no accessory muscle use. HEART: Regular rate and rhythm, S1, S2 without murmur, rub or gallop. ABDOMEN: Soft, nontender, nondistended, normoactive bowel sounds, no guarding, no rebound, no hepatosplenomegaly, no masses. EXTREMITIES: 2+ pulses, warm, well-perfused, no edema. NEUROLOGICAL: Cranial nerves II through XII grossly intact. Normal speech, gait not observed. PSYCH: Normal mood, normal affect. SKIN: Warm, dry, normal turgor, no rashes or lesions noted Laboratory Results - last 24 hr 07/05/16 07/05/16 05:30 11:09 TSH 1.52 D Cancelled Active Medications Generic Name Dose Route Start Last Admin Trade Name Freq PRN Reason Stop Dose Admin Albuterol/Ipratropium 1 amp 07/04/16 22:30 07/05/16 00:18 Duoneb - NEB 1 amp Q6H PRN Administration SHORTNESS OF BREATH Amlodipine Besylate 10 mg 07/06/16 10:00 Norvasc - PO DAILY ARMEN Carvedilol 3.125 mg 07/04/16 22:00 07/05/16 21:13 Coreg - PO 3.125 mg BID ARMEN Administration Emollient Ointment 1 applic 07/05/16 22:00 07/05/16 21:13 Aquaphor - TP 1 applic BID ARMEN Administration Ferrous Sulfate 325 mg 07/05/16 22:00 07/05/16 21:13 Feosol - PO 325 mg BID ARMEN Administration Guaifenesin 10 ml 07/05/16 03:41 07/05/16 04:00 Robitussin Dm - PO 10 ml Q6H PRN Administration COUGH Heparin Sodium (Porcine) 5,000 unit 07/05/16 18:00 07/06/16 03:00 Heparin - SQ 5,000 unit Q8H-IV ARMEN Administration Levofloxacin 150 mls @ 100 mls/hr 07/06/16 10:00 Levaquin 750 Mg Premixed Ivpb - IVPB DAILY ARMEN Ampicillin Sodium/Sulbactam 100 mls @ 200 mls/hr 07/05/16 18:00 07/06/16 03:00 Sodium 3 gm/ Sodium Chloride IVPB 200 mls/hr Q8H-IV ARMEN Administration Lisinopril 5 mg 07/05/16 10:00 07/05/16 10:10 Prinivil PO 5 mg DAILY ARMEN Administration Thiamine HCl 100 mg 07/05/16 22:00 07/05/16 21:13 Vitamin B1 - PO 100 mg BID ARMEN Administration ASSESSMENT/PLAN:
[2016-07-06] MEDS: MINERAL OIL/PET HY-PHL TOPICAL OINTMENT 454 GM JAR TP SCH (09:28)
[2016-07-06] MEDS: CARVEDILOL 3.125 MG TABLET (FP) PO SCH (09:28)
[2016-07-06] MEDS: LISINOPRIL 5 MG TABLET (FP) PO SCH (09:29)
[2016-07-06] MEDS: FERROUS SO4 325 MG TABLET (FP) PO SCH (09:29)
[2016-07-06] MEDS: THIAMINE HCL 100 MG TABLET (FP) PO SCH (09:30)
[2016-07-06] MEDS ORDERED: amLODIPine BESYLATE 10 MG TABLET (FP) PO SCH (10:00)
[2016-07-06] MEDS ORDERED: LEVOFLOXACIN 750 MG IVPB 150 ML IVPB SCH (10:00)
--- NOTE | 2016-07-06 13:37 | PN ---
Progress Note, Physician History of Present Illness: patient doing well no complaints - Objective Vital Signs: Vital Signs Temperature 98.2 F 07/06/16 09:44 Pulse Rate 90 07/06/16 07:36 Respiratory Rate 16 07/06/16 07:36 Blood Pressure 120/84 07/06/16 07:36 O2 Sat by Pulse Oximetry (%) 100 07/06/16 07:33 Constitutional: Yes: No Distress, Calm Neck: Yes: Supple Cardiovascular: Yes: Regular Rate and Rhythm Respiratory: Yes: Regular, CTA Bilaterally Gastrointestinal: Yes: Normal Bowel Sounds, Soft Musculoskeletal: Yes: Other Extremities: Yes: Other (wounds healig well) Labs: CBC, BMP 07/04/16 05:38 07/05/16 05:30 INR, PTT INR 1.06 (0.82-1.09) 07/04/16 02:10 Assessment/Plan Patient is a 40 year old male with significant past medical history of Hypertension, CHF, COPD, Pneumonia, Eczema, alcohol dependence who presented to the ED with the chief complaints of worsening shortness of breath and cough since this morning. # Sepsis secondary to Community acquired pneumonia # CHF exacerbation # Electrolyte imbalance # Hypertension # Alcohol dependence # COPD- # Eczema plan continue current mgmt patient doing well
--- NOTE | 2016-07-06 13:38 | PN ---
Progress Note, Physician History of Present Illness: patient doing well no complaints - Objective Vital Signs: Vital Signs Temperature 98.2 F 07/06/16 09:44 Pulse Rate 90 07/06/16 07:36 Respiratory Rate 16 07/06/16 07:36 Blood Pressure 120/84 07/06/16 07:36 O2 Sat by Pulse Oximetry (%) 100 07/06/16 07:33 Constitutional: Yes: No Distress, Calm Cardiovascular: Yes: Regular Rate and Rhythm Respiratory: Yes: Regular, CTA Bilaterally Gastrointestinal: Yes: Normal Bowel Sounds, Soft Extremities: Yes: WNL Psychiatric: Yes: Alert, Oriented Labs: CBC, BMP 07/04/16 05:38 07/05/16 05:30 INR, PTT INR 1.06 (0.82-1.09) 07/04/16 02:10 Assessment/Plan # Sepsis secondary to Community acquired pneumonia # CHF exacerbation # Electrolyte imbalance # Hypertension # Alcohol dependence # COPD- # Eczema plan continue current mgmt patient doing well
[2016-07-06 13:48] VITALS: BP 123/76
--- NOTE | 2016-07-06 14:09 | DS ---
Physical Exam: SUBJECTIVE: Patient seen and examined Pt is doing well and feeling well this morning No more shortness of breath ambulating in room and hallway No fever or chills Minimal cough, non productive no n/v no more weakness feeling at baseline OBJECTIVE: Vital Signs Period Temp Pulse Resp BP Sys/Wright Pulse Ox Last 24 Hr 98 F-98.2 F 90-104 9-20 103-123/70-84 100 PHYSICAL EXAM GENERAL: The patient is awake, alert, and fully oriented, in no acute distress. HEAD: Normal with no signs of trauma. EYES: PERRL, extraocular movements intact, sclera anicteric, conjunctiva clear. No ptosis. ENT: Ears normal, nares patent, oropharynx clear without exudates, moist mucous membranes. NECK: Trachea midline, full range of motion, supple. LUNGS:clear lungs to ausculation b/l. No accessory muscle use. HEART: Regular rate and rhythm, S1, S2 without murmur, rub or gallop. ABDOMEN: Soft, nontender, nondistended, normoactive bowel sounds, no guarding, no rebound, no hepatosplenomegaly, no masses. EXTREMITIES: 2+ pulses, warm, well-perfused, no edema. NEUROLOGICAL: Normal speech, gait not observed. PSYCH: Normal mood, normal affect. SKIN: Warm, dry, poor skin turgor, scaly skin LABS CBC, BMP 07/04/16 05:38 07/05/16 05:30 HOSPITAL COURSE: Date of Admission:07/04/16 Patient is a 40 year old male who presented to the ED with the chief complaints of worsening shortness of breath and cough since this morning. Patient was discharged on 06/27/2016 with the diagnosis of pneumonia, was discharged on Levaquin and to f/up with the primary doctor within a week. However, patient mentioned he never took Levaquin since he couldn't afford 200 $ for the medication. Says he didn't follow up with his primary. Until this morning, patient mentions he was fine. But started having dry cough with worsening shortness of breath at rest and exertion. No orthopnea or PND. Also reports to have chills and rigors but no fever. Denies chest pain, palpitation, abdominal pain, nausea or vomiting. Bowel/bladder habit normal. Sleep/Appetite normal. ER course was notable for: (1) Afebrile, Tachycardic 130bpm, Hypertensive 154/103, 28 RR, Spo2-93 (2) Hypokalemia 3.2; Hypomagnesemia 1.6, BNP 4760.55 (3) No IV access. Received PO Lasix 60mg, K-Dur 40mg, Prednisone 60mg, Duoneb 40 year old male with pmh HTN, Eczema recently admitted for b/l pneumonia discharge on PO Levaquin present with shortness of breath, cough, tachypnea, tachycardia. Pt did not take antibiotics upon discharge. Sepsis from B/l Pneumonia. Currently pt is feeling at baseline, No more shortness of breath, no chest pain, minimal dry cough, no fever, no chills, no lower ext edema, no crackles, ronchi or wheezes on auscultation. Pt was non compliant to antibiotics on last discharge and returned with PNA. Pt was treated with IV Levaquin 750mg daily and Unasyn with Dr Vasquez. Pt now has insurance and he is discharge on Levaquin 750mg po daily for 7 days. Acute Systolic Heart failure. No JVD seen, No lower ext edema, BNP 4760, admission showed CXR with vascular congestion and infiltrates, Echo done 07/04/16, showed Left ventricule moderately dilated, Left ventricle systolic function moderately reduced, Severe Septal Hypokinesis, Moderate global hypokinesis, Left atrium, Right atrium moderately dilated, Moderate TR. New CXR 07/05/16: With increased congestive changes and infiltrates. Started on Coreg 3.125mg po BID, received LAsix IV 40mg once, Lisinopril 5mg PO daily. Will be discharged on LAsix 20mg Po daily, and we will continue Coreg, Lisinopril. Pt is follow up with cardiology Dr baron within 1 week. Pt will need Stress test (persantine) as outpatient. Macrocytic Anemia. at baseline. Alcohol Dependence. Completed Librium protocol last week. No s/s withdrawal. Eczema. Short shower and Moisture regularly, Aquaphor Emollient. Follow up with Dr Beltre, dermatology within 1 week. Date of Discharge: 07/06/16 Minutes to complete discharge: 45 Discharge Summary Reason For Visit: CHF,PNEUMONIA Current Active Problems Pneumonia (Acute) Condition: Stable - Instructions Diet, Activity, Other Instructions: Discharge home Resume Home diet Resume Home activity Start Levaquin 750mg, 1 tablet orally for 7 days Start Coreg 3.125, 1 tablet orally twice per day Start Lasix 20mg, 1 tablet orally daily Start Lisinopril 5 mg, 1 tablet orally daily Follow up with Dr Baron, hardboard grinder within 1 week You will need to do a Stress test, Discuss it with Follow up with your primary care physician, Dr Pichardo, within 3-5 days Follow up with your retail agent within 2 weeks Referrals: Ashlie Beltre MD [Staff Physician] - Jarrod Pichardo MD [Primary Care Provider] - Khoi Baron MD [Staff Physician] - Disposition: HOME - Home Medications Comprehensive Discharge Medication List: Ambulatory Orders Mineral Oil/Pet Hy-Phl [Aquaphor -] 1 applic TP BID #1 jar 06/29/16 Thiamine HCl [Vitamin B1 -] 100 mg PO BID #0 tablet 06/29/16 Amlodipine Besylate [Norvasc -] 10 mg PO DAILY #30 06/30/16 Ferrous Sulfate [Feosol] 325 mg PO BID #60 tablet 06/30/16 Carvedilol [Coreg -] 3.125 mg PO BID #60 tablet 07/06/16 Furosemide [Lasix -] 20 mg PO DAILY #30 tablet 07/06/16 Guaifenesin AC [Robitussin AC] 10 ml PO Q6H #1 bottle MDD 4 07/06/16 Levofloxacin 750 mg PO DAILY #7 tablet 07/06/16 Lisinopril [Prinivil] 5 mg PO DAILY #30 tablet 07/06/16 This patient is new to me today: Yes Date on this admission: 07/06/16 Emergency Visit: No Critical Care patient: No - Discharge Referral Referred to [facility] Med [facility] No
== END 2016-07-06 13:20 | disposition home or self-care (01) | DRG 720 ==
LOC: JER 01:45 → JERBED 03:12 → JICU 08:34
PROVIDERS: ADMIT Internal Medicine; ATTEND Internal Medicine
DX: A41.9 Sepsis, unspecified organism (principal); J44.0 Chronic obstructive pulmonary disease with (acute) lower respiratory infection; J18.9 Pneumonia, unspecified organism; L30.9 Dermatitis, unspecified; D50.9 Iron deficiency anemia, unspecified; F17.210 Nicotine dependence, cigarettes, uncomplicated; F10.20 Alcohol dependence, uncomplicated; E87.6 Hypokalemia; E83.42 Hypomagnesemia; R00.0 Tachycardia, unspecified; I11.0 Hypertensive heart disease with heart failure; I50.23 Acute on chronic systolic (congestive) heart failure
CPT/HCPCS: 36415; 71010-TC; 80048; 80053; 81003; 82550; 83605; 83690; 83735; 83880; 84100; 84443; 84484; 85025; 85610; 86738; 86850; 86900; 86901; 87040; 87086; 93005; 93010; 93306-TC; 94640; 99285-25; J1644

== ENCOUNTER 2016-10-28 18:48 | Emergency (ER) | payer OTHER ==
[2016-10-28 18:54] VITALS: BP 105/49; PULSE 118; TEMP 98.3; BMI 23.1
--- NOTE | 2016-10-28 19:17 | PDOC ---
History of Present Illness - General Chief Complaint: Alcohol intoxication Stated Complaint: FOOT INJURY Time Seen by Provider: 10/28/16 19:02 - History of Present Illness Initial Comments: 10/28/16 19:12 Patient is a 41 year old male who presents with complaints of right heel pain following a fall. He reports that he was playing with his niece when he jumping stairs and fell on his right heel yesterday evening. Patient reports achy moderate pain in his right heel worse with walking prompting his visit to the ED today. He denies any other injuries or loss of consciousness. Past History - Past Medical History Allergies/Adverse Reactions: Allergies Allergy/AdvReac Type Severity Reaction Status Date / Time No Known Allergies Allergy Verified 10/28/16 18:48 Home Medications: Ambulatory Orders Mineral Oil/Pet Hy-Phl [Aquaphor -] 1 applic TP BID #1 jar 06/29/16 Thiamine HCl [Vitamin B1 -] 100 mg PO BID #0 tablet 06/29/16 Amlodipine Besylate [Norvasc -] 10 mg PO DAILY #30 06/30/16 Ferrous Sulfate [Feosol] 325 mg PO BID #60 tablet 06/30/16 Carvedilol [Coreg -] 3.125 mg PO BID #60 tablet 07/06/16 Furosemide [Lasix -] 20 mg PO DAILY #30 tablet 07/06/16 Guaifenesin AC [Robitussin AC] 10 ml PO Q6H #1 bottle MDD 4 07/06/16 Levofloxacin 750 mg PO DAILY #7 tablet 07/06/16 Lisinopril [Prinivil] 5 mg PO DAILY #30 tablet 07/06/16 Anemia: No Asthma: No Cancer: No Cardiac Disorders: No CVA: No COPD: Yes CHF: Yes Dementia: No Diabetes: No GI Disorders: No Disorders: No HTN: Yes Hypercholesterolemia: No Liver Disease: No Seizures: No Thyroid Disease: No - Surgical History Appendectomy: Yes - Psycho/Social/Smoking Cessation Hx Anxiety: No Suicidal Ideation: No Smoking History: Current every day smoker Have you smoked in the past 12 months: Yes Number of Cigarettes Smoked Daily: 10 Cigars Per Day: 1 Information on smoking cessation initiated: Yes 'Breaking Loose' booklet given: 10/28/16 Hx Alcohol Use: Yes (daily) Drug/Substance Use Hx: Yes Substance Use Type: None Hx Substance Use Treatment: No Review of Systems - Review of Systems Constitutional: No: Chills, Fever HEENTM: No: Recent change in vision, Double Vision Respiratory: No: Cough, Shortness of Breath Cardiac (ROS): No: Chest Pain, Palpitations, Syncope ABD/GI: No: Diarrhea, Nausea, Vomiting Integumentary: No: Bruising Neurological: No: Headache, Numbness, Weakness *Physical Exam - Vital Signs Last Vital Signs Temp Pulse Resp BP Pulse Ox 98.3 F 118 H 18 105/49 100 10/28/16 18:51 10/28/16 18:51 10/28/16 18:51 10/28/16 18:51 10/28/16 18:51 - Physical Exam Comments: 10/28/16 20:10 General Appearance: Nourished, Mildly Intoxicated. No Apparent Distress HEENT: No Pharyngeal Erythema, Tonsillar Exudate, Tonsillar Erythema Respiratory/Chest: Lungs Clear, Normal Breath Sounds. No Crackles, Rales, Rhonchi, Wheezing Cardiovascular: Regular Rhythm, Regular Rate. No Murmur, Gallop/S3, Gallop/S4 Gastrointestinal/Abdominal: Normal Bowel Sounds, Flat, Soft. No Guarding, Rebound, Tenderness Musculoskeletal: Normal range of motion in the right ankle, foot and knee. Tenderness to palpation of the right heel. Extremity: Normal Capillary Refill. No Coldness, Cyanosis Integumentary: Normal Color, Dry, Warm Neurologic: Fully Oriented, Alert, Normal Mood/Affect, Normal Response ED Treatment Course - RADIOLOGY Radiology Studies Ordered: Category Date Time Status ANKLE & FOOT-RIGHT* [RAD] Stat Radiology 10/28/16 19:05 Ordered Medical Decision Making - Medical Decision Making 10/28/16 20:07 Patient is a 41 year old male who presents with right heel pain following a fall. Given his continued pain and history of trauma to the heel, we will obtain radiographs to rule out fracture. Patient has full range of motion in the foot, ankle, and knee as well making joint injury unlikely. It is likely that the patient has a bony contusion given the mechanism of his injury and physical exam. *DC/Admit/Observation/Transfer Diagnosis at time of Disposition: Contusion of bone - Discharge Dispostion Disposition: HOME Condition at time of disposition: Good - Patient Instructions Printed Discharge Instructions: DI for Contusion Additional Instructions: Please return to the ER if you experience any worsening symptoms including worsening pain, or unusual numbness or weakness. Please follow up with your primary care provider to discuss your ER visit. - Attestations Physician Attestion: 10/28/16 20:59 I, Dr. Donta Alamo, attest that this document has been prepared under my direction and personally reviewed by me in its entirety. I further attest, that it accurately reflects all work, treatment, procedures and medical decision -making performed by me.
--- NOTE | 2016-10-28 20:25 | PDOC ---
Attending Attestation - Resident Resident Name: Donta Alamo - HPI HPI: 10/28/16 20:24 41 yo male p/w pain since yesterday after jumping on the steps while playing with family. C/O rt heel pain Pt is ambulating with cane - Physicial Exam PE: 10/28/16 20:25 41 yo male ambulating with cane because of rt heel pain No obvious deformity of the right foot, no 5th metatarsal pain or tenderness. Cap refill < 2 seconds. Proprioception intact. - Medical Decision Making 10/28/16 21:15 radiograph negative for any acute fracture/pt discharged home
== END 2016-10-28 21:19 | disposition home or self-care (01) ==
LOC: JER 18:48
DX: S90.31XA Contusion of right foot, initial encounter (principal); W10.8XXA Fall (on) (from) other stairs and steps, initial encounter; Y93.39 Activity, other involving climbing, rappelling and jumping off; Y92.89 Other specified places as the place of occurrence of the external cause; Y99.8 Other external cause status
CPT/HCPCS: 73610-TC-RT; 73630-TC-RT; 99281-25

== ENCOUNTER 2018-02-04 12:57 | Inpatient (IN) | payer OTHER ==
[2018-02-04 14:39] VITALS: BMI 23.0
--- NOTE | 2018-02-04 16:16 | HP ---
CIWA Score - CIWA Score Nausea/Vomitin-No Nausea/No Vomiting Muscle Tremors: 3 Anxiety: 3 Agitation: 2 Paroxysmal Sweats: 1-Minimal Palms Moist Orientation: 0-Oriented Tacttile Disturbances: 0-None Auditory Disturbances: 0-None Visual Disturbances: 0-None Headache: 0-None Present CIWA-Ar Total Score: 9 Admission ROS BHS - HPI Chief Complaint: Here because of alcohol withdrawal and I want help. Allergies/Adverse Reactions: Allergies Allergy/AdvReac Type Severity Reaction Status Date / Time No Known Allergies Allergy Verified 02/04/18 15:31 History of Present Illness: I'm here because I want to stop drinking alcohol. Started drinking at age 12. Last drink today at 10:30 am: MUKUL = 0.100 Denies other drug use. Has tried stopping alcohol use in the outpatient setting. Longest length of sobriety 2 months - avoided people, places, and things. Denies hx seizures or blackouts. Hx HTN, CHF, Eczema Exam Limitations: No Limitations - Ebola screening Have you traveled outside of the country in the last 21 days: No Have you had contact with anyone from an Ebola affected area: No Have you been sick,other than usual withdrawal symptoms: No - Review of Systems Constitutional: Changes in sleep (Difficulty falling asleep) EENT: reports: Dental Problems (Occ toothache. Chews and swallows ok.) Respiratory: reports: SOB with Exertion (Walkling up hills and steep stairs.) Cardiac: reports: No Symptoms Reported, Other (Hx: CHF and HTN) GI: reports: No Symptoms Reported : reports: No Symptoms Reported Musculoskeletal: reports: No Symptoms Reported Integumentary: reports: Rash (Eczema on ankles, back of neck) Neuro: reports: Tremors (r/t withdrawal) Endocrine: reports: No Symptoms Reported Hematology: reports: No Symptoms Reported Psychiatric: reports: Orientated x3, Anxious, Depressed (Denies thoughts of harming self or others) Patient History - Patient Medical History Hx Anemia: No Hx Asthma: No Hx Chronic Obstructive Pulmonary Disease (COPD): No Hx Cancer: No Hx Cardiac Disorders: Yes (CHF- ON MEDS) Hx Congestive Heart Failure: Yes Hx Hypertension: Yes (ON MEDS.) Hx Hypercholesterolemia: No Hx Pacemaker: No HX Cerebrovascular Accident: No Hx Seizures: No Hx Dementia: No Hx Diabetes: No Hx Gastrointestinal Disorders: No Hx Liver Disease: No Hx Genitourinary Disorders: No Hx Sexually Transmitted Disorders: No Hx Renal Disease (ESRD): No Hx Thyroid Disease: No Hx Human Immunodeficiency Virus (HIV): No (2 weeks ago - neg) Hx Hepatitis C: No Hx Depression: Yes Hx Suicide Attempt: No Hx Schizophrenia: No - Patient Surgical History Past Surgical History: Yes Hx Neurologic Surgery: No Hx Cataract Extraction: No Hx Cardiac Surgery: No Hx Lung Surgery: No Hx Breast Surgery: No Hx Breast Biopsy: No Hx Abdominal Surgery: No Hx Appendectomy: Yes (appendix removal '90s) Hx Cholecystectomy: No Hx Genitourinary Surgery: No Hx Section: No Hx Orthopedic Surgery: No Anesthesia Reaction: No - PPD History Previous Implant?: Yes Documented Results: Negative w/o proof Implanted On Prior [facility] Admission?: No PPD to be Administered?: Yes - Smoking Cessation Smoking history: Current every day smoker Have you smoked in the past 12 months: Yes Aproximately how many cigarettes per day: 10 Cigars Per Day: 1 Hx Chewing Tobacco Use: No Initiated information on smoking cessation: Yes 'Breaking Loose' booklet given: 02/04/18 - Substance & Tx. History Hx Alcohol Use: Yes Hx Substance Use: Yes Substance Use Type: Alcohol Hx Substance Use Treatment: Yes (Out-patient only) - Substances Abused Alcohol Route: Oral Frequency: Daily Amount used: liquor- 2pt beers - 6pk Age of first use: 12 Date of Last Use: 02/04/18 Admission Physical Exam BHS - Vital Signs Vital Signs: Vital Signs - 24 hr 02/04/18 14:38 Temperature 97.7 F Pulse Rate 79 Respiratory 18 Rate Blood Pressure 126/76 - Physical General Appearance: Yes: Mild Distress, Tremorous, Sweating (Minimal moisture on brow), Anxious HEENTM: Yes: EOMI, Hearing grossly Normal, Normal Voice, LEE, Pharynx Normal Respiratory: Yes: Lungs Clear, Normal Breath Sounds, No Respiratory Distress Neck: Yes: No masses,lesions,Nodules, Supple Breast: Yes: Breast Exam Deferred Cardiology: Yes: Regular Rhythm, Regular Rate, S1, S2, Other (No edema. No SOB. Denies chest pain.) Abdominal: Yes: Non Tender, Flat, Soft, Increased Bowel Sounds Genitourinary: Yes: Within Normal Limits Back: Yes: Normal Inspection Musculoskeletal: Yes: full range of Motion, Gait Steady Extremities: Yes: Normal Capillary Refill, Normal Range of Motion, Tremors ( MIld tremors of hands at rest and slightly increased w/ hands lifted) Neurological: Yes: drosophere operator II-XII NML intact, Fully Oriented, Motor Strength 5/5, Normal Mood/Affect Integumentary: Yes: Normal Color, Dry (Decreased skin turgor), Warm, Other (Dry , thickened skin on arms and legs w/ poor turgor) Lymphatic: Yes: Within Normal Limits - Diagnostic (1) Alcohol dependence with uncomplicated withdrawal Current Visit: Yes Status: Acute (2) Dehydration Current Visit: Yes Status: Acute (3) Eczema Current Visit: Yes Status: Chronic Qualifiers: Eczema type: unspecified Qualified Code(s): L30.9 - Dermatitis, unspecified (4) Nicotine dependence, uncomplicated Current Visit: Yes Status: Chronic Qualifiers: Nicotine product type: cigarettes Qualified Code(s): F17.210 - Nicotine dependence, cigarettes, uncomplicated (5) Essential (primary) hypertension Current Visit: Yes Status: Chronic (6) History of CHF (congestive heart failure) Current Visit: No Status: Chronic Cleared for Admission [facility] - Detox or Rehab [facility] Level of Care: Medically Supervised Detox Regimen/Protocol: Librium [facility] Breath Alcohol Content Breath Alcohol Content: 0.100 Urine Drug Screen - Results Drug Screen Negative: Yes
[2018-02-04] MEDS ORDERED: MENTHOL/PHENOL 1 EACH UD MM PRN (16:37)
[2018-02-04] MEDS ORDERED: MAGNESIUM HYDROX 2400MG/30ML ORAL SUSPENSION 30 ML CUP PO PRN (16:37)
[2018-02-04] MEDS ORDERED: IBUPROFEN 400 MG TABLET (FP) PO PRN (16:37)
[2018-02-04] MEDS ORDERED: P-EPHED 60MG/TRIPROLIDI 2.5MG TABLET PO PRN (16:37)
[2018-02-04] MEDS ORDERED: chlordiazePOXIDE HCL 25 MG CAPSULE PO PRN (16:37)
[2018-02-04] MEDS ORDERED: hydrOXYzine PAMOATE 50 MG CAPSULE (FP) PO PRN (16:37)
[2018-02-04] MEDS ORDERED: MAG HYDROX/AL HYDROX/SIMETH 30 ML UNIT-DOSE CUP PO PRN (16:37)
[2018-02-04] MEDS ORDERED: LOPERAMIDE HCL 2 MG CAPSULE PO PRN (16:37)
[2018-02-04] MEDS ORDERED: MAGNESIUM CITRATE 300 ML BOTTLE PO PRN (16:37)
[2018-02-04] MEDS ORDERED: guaiFENesin/D-METHORPHAN HB 10 ML UNIT-DOSE CUPS PO PRN (16:37)
[2018-02-04] MEDS ORDERED: ACETAMINOPHEN 325 MG TABLET (FP) PO PRN (16:37)
[2018-02-04] MEDS ORDERED: AMMONIUM LACTATE 12% LOTION 225 GM BOTTLE TP PRN (16:41)
[2018-02-04] MEDS ORDERED: chlordiazePOXIDE HCL 25 MG CAPSULE PO ONE (17:30)
[2018-02-04] MEDS: COLLOIDAL OATMEAL 1 BAR EACH TP SCH (18:05)
[2018-02-04] MEDS: NICOTINE POLACRILEX 2 MG GUM BC PRN (20:36)
[2018-02-04] MEDS ORDERED: MELATONIN 5 MG TABLETS PO PRN (22:00)
[2018-02-04] MEDS: BETAMETHASONE DIP 0.05% TP LOTION 30 ML BOTTLE TP SCH (22:02)
[2018-02-04] MEDS: CARVEDILOL 6.25 MG TABLET (FP) PO SCH (22:04)
[2018-02-04] MEDS: chlordiazePOXIDE HCL 25 MG CAPSULE PO SCH (22:04)
[2018-02-04] MEDS: THIAMINE HCL 100 MG TABLET (FP) PO SCH (22:04)
[2018-02-05] MEDS: chlordiazePOXIDE HCL 25 MG CAPSULE PO SCH ×4 (05:08→22:08)
[2018-02-05] MEDS: BETAMETHASONE DIP 0.05% TP LOTION 30 ML BOTTLE TP SCH ×2 (10:04→22:08)
[2018-02-05] MEDS: CARVEDILOL 6.25 MG TABLET (FP) PO SCH ×2 (10:04→22:08)
[2018-02-05] MEDS: PRENATAL VITAMINS W/ FOLIC ACID TABLET (FP) PO SCH (10:04)
[2018-02-05] MEDS: SACUBITRIL/VALSARTAN 49 MG-51 MG TABLET PO SCH (10:05)
[2018-02-05] MEDS: NICOTINE 14 MG/24 HOURS TOPICAL PATCH TD SCH (10:07)
[2018-02-05] MEDS: TACROLIMUS TP SCH (10:08)
--- NOTE | 2018-02-05 10:16 | PN ---
BHS CIWA - CIWA Score Nausea/Vomitin Muscle Tremors: 1-None Visible, but [place] Anxiety: 2 Agitation: 2 Paroxysmal Sweats: No Perspiration Orientation: 0-Oriented Tacttile Disturbances: 0-None Auditory Disturbances: 0-None Visual Disturbances: 0-None Headache: 2-Mild CIWA-Ar Total Score: 9 BHS Progress Note (SOAP) Subjective: PATIENT C/O ANXIETY, HEADACHE, RESTLESSNESS AND NAUSEA/DIARRHEA. Objective: 02/05/18 10:15 Vital Signs Temperature 98.8 F 02/05/18 09:02 Pulse Rate 63 02/05/18 09:02 Respiratory Rate 18 02/05/18 09:02 Blood Pressure 130/91 02/05/18 09:02 O2 Sat by Pulse Oximetry (%) PE: ALERT AND ORIENTED X3 SKIN WARM AND DRY CAR S1S2 RESP CTA BL EXT MILD TREMORS FELT Assessment: 02/05/18 10:15 WITHDRAWAL SYNDROME Plan: CONTINUE DETOX ORDERED ENCOURAGE ORAL FLUIDS CONTINUE TO MONITOR CLINICALLY
[2018-02-05 10:21] LABS: URINE APPEARANCE CLEAR; URINE BILIRUBIN NEGATIVE (<2.0 mg/dL); URINE COLOR LTYELLOW; URINE GLUCOSE (UA) NEGATIVE (NEGATIVE); URINE KETONE NEGATIVE (NEGATIVE); URINE LEUK ESTERASE TRACE (NEGATIVE); URINE NITRITE NEGATIVE (NEGATIVE); URINE PROTEIN NEGATIVE (NEGATIVE); URINE UROBILINOGEN NEGATIVE mg/dL (0.2-1.0)
[2018-02-05 10:23] LABS: EPI CELLS RARE /HPF (FEW); URINE BACTERIA RARE /hpf (NONE SEEN); URINE MUCUS RARE
--- NOTE | 2018-02-05 10:48 | EKG ---
Test Reason : Blood Pressure : / mmHG Vent. Rate : 069 BPM Atrial Rate : 069 BPM P-R Int : 128 ms QRS Dur : 094 ms QT Int : 396 ms P-R-T Axes : 018 035 021 degrees QTc Int : 424 ms NORMAL SINUS RHYTHM MINIMAL VOLTAGE CRITERIA FOR LVH, MAY BE NORMAL VARIANT BORDERLINE ECG WHEN COMPARED WITH ECG OF 04-JUL-2016 02:01, VENT. RATE HAS DECREASED BY 52 BPM NONSPECIFIC T WAVE ABNORMALITY, IMPROVED IN LATERAL LEADS Confirmed by BARBARA MAYORGA, SHY ([id number]) on 02/05/2018 10:47:50 AM Referred By: Confirmed By:SHY JIMENEZ MD
[2018-02-05 10:50] LABS: ALBUMIN 3.2 g/dl (3.4-5.0); ALK PHOS 65 U/L (45-117); ANION GAP 4 MMOL/L (8-16); BILIRUBIN,TOTAL 0.3 mg/dL (0.2-1); BLOOD UREA NITROGEN 9 mg/dL (7-18); CALCIUM 8.8 mg/dL (8.5-10.1); CHLORIDE 106 mmol/L (98-107); CO2 30 mmol/L (21-32); CREATININE 0.8 mg/dL (0.55-1.3); GLUCOSE,RANDOM 80 mg/dL (74-106); POTASSIUM 3.9 mmol/L (3.5-5.1); SGOT/AST 16 U/L (15-37); SGPT/ALT 13 U/L (13-61); SODIUM 139 mmol/L (136-145); TOT PROT 7.2 g/dl (6.4-8.2)
[2018-02-05 10:52] LABS: HEMATOCRIT 35.5 % (35.4-49); HEMOGLOBIN 10.8 GM/dL (11.7-16.9); MCH 24.8 pg (25.7-33.7); MCHC 30.4 g/dl (32.0-35.9); MEAN CELL VOLUME 81.5 fl (80-96); MEAN PLT VOLUME 8.4 fl (7.5-11.1); PLATELET COUNT 243 K/MM3 (134-434); RBC 4.36 M/mm3 (4.00-5.60); RDW 25.4 % (11.9-15.9); WHITE BLOOD COUNT 3.8 K/mm3 (4.0-10.0)
--- NOTE | 2018-02-05 15:25 | CONSULT ---
[facility] Psychiatric Consult - Data Date of interview: 02/05/18 Admission source: [facility] Identifying data: First admission to [facility] for this 42 y/o AA male seeking detoxification,on , for alcohol dependence.Patient is single, a father of one, homeless,unemployed and supported occasionally by relatives. Substance Abuse History: Confirmed by the patient in this interview. Details in current [facility] report : Smoking history: Current every day smoker. Have you smoked in the past 12 months: Yes. Aproximately how many cigarettes per day: 10. Cigars Per Day: 1. Hx Chewing Tobacco Use: No. Initiated information on smoking cessation: Yes. 'Breaking Loose' booklet given: 02/04/18. - Substance & Tx. History. Hx Alcohol Use: Yes. Hx Substance Use: Yes. Substance Use Type : Alcohol. Hx Substance Use Treatment: Yes (Out-patient only). - Substances Abused. Alcohol. Route: Oral. Frequency: Daily. Amount used: liquor- 2pt beers - 6pk. Age of first use: 12. Date of Last Use: 02/04/18 Medical History: Hypertension,congestive heart failure,eczema and a history of appendectomy. Psychiatric History: Patient denies. Physical/Sexual Abuse/Trauma History: Patient denies. Additional Comment: Drug Screen is negative. Mental Status Exam - Mental Status Exam Alert and Oriented to: Time, Place, Person Cognitive Function: Good Patient Appearance: Well Groomed Mood: Hopeful, Euthymic Affect: Appropriate, Normal Range Patient Behavior: Fatigued, Cooperative Speech Pattern: Clear Voice Loudness: Normal Thought Process: Intact, Goal Oriented Thought Disorder: Not Present Hallucinations: Denies Suicidal Ideation: Denies Homicidal Ideation: Denies Insight/Judgement: Poor Sleep: Poorly, Difficulty falling asleep Appetite: Good Muscle strength/Tone: Normal Gait/Station: Normal Psychiatric Findings - Problem List ([place] 1, 2,3) (1) Alcohol dependence with uncomplicated withdrawal Current Visit: Yes Status: Acute (2) Nicotine dependence, uncomplicated Current Visit: Yes Status: Chronic Qualifiers: Nicotine product type: cigarettes Qualified Code(s): F17.210 - Nicotine dependence, cigarettes, uncomplicated (3) Insomnia Current Visit: Yes Status: Acute - Initial Treatment Plan Initial Treatment Plan: Psychoeducation.Detoxification.Supportive,group therapy.AA meetings.Ambien 5 mg po hs prn to address insomnia. Patient is made aware of the risk of parasomnias.Agrees to careplan.Observation.
[2018-02-05] MEDS: COLLOIDAL OATMEAL 1 BAR EACH TP SCH (18:15)
[2018-02-05] MEDS: ZOLPIDEM TARTRATE 5 MG TABLET PO PRN (22:08)
[2018-02-05] MEDS: THIAMINE HCL 100 MG TABLET (FP) PO SCH (22:08)
[2018-02-06] MEDS: chlordiazePOXIDE HCL 25 MG CAPSULE PO SCH ×3 (05:10→17:30)
--- NOTE | 2018-02-06 10:01 | PN ---
S CIWA - CIWA Score Nausea/Vomitin-No Nausea/No Vomiting Muscle Tremors: None Anxiety: 2 Agitation: 1-Slight > Activity Paroxysmal Sweats: No Perspiration Orientation: 0-Oriented Tacttile Disturbances: 0-None Auditory Disturbances: 0-None Visual Disturbances: 0-None Headache: 0-None Present CIWA-Ar Total Score: 3 BHS Progress Note (SOAP) Subjective: PATIENTS STATES HE FEELS WELL. HAS SOME ANXIETY AND MILD RESTLESSNESS. DENIES SHAKES, HEADACHE AND SWEATING. Objective: 02/06/18 10:00 Vital Signs Temperature 96.9 F L 02/06/18 09:57 Pulse Rate 67 02/06/18 09:57 Respiratory Rate 18 02/06/18 09:57 Blood Pressure 126/85 02/06/18 09:57 O2 Sat by Pulse Oximetry (%) Laboratory Tests 02/05/18 02/05/18 02/05/18 07:00 07:00 07:00 WBC 3.8 L RBC 4.36 Hgb 10.8 L Hct 35.5 D MCV 81.5 MCH 24.8 L D MCHC 30.4 L RDW 25.4 H Plt Count 243 D MPV 8.4 Sodium 139 Potassium 3.9 Chloride 106 Carbon Dioxide 30 Anion Gap 4 L BUN 9 Creatinine 0.8 Creat Clearance w eGFR > 60 Random Glucose 80 Calcium 8.8 Total Bilirubin 0.3 AST 16 ALT 13 Alkaline Phosphatase 65 Total Protein 7.2 Albumin 3.2 L Urine Color Urine Appearance Urine pH Ur Specific [place] Urine Protein Urine Glucose (UA) Urine Ketones Urine Blood Urine Nitrite Urine Bilirubin Urine Urobilinogen Ur Leukocyte Esterase Urine WBC (Auto) Urine RBC (Auto) Ur Epithelial Cells Urine Bacteria Urine Mucus RPR Titer Nonreactive 02/05/18 07:50 WBC RBC Hgb Hct MCV MCH MCHC RDW Plt Count MPV Sodium Potassium Chloride Carbon Dioxide Anion Gap BUN Creatinine Creat Clearance w eGFR Random Glucose Calcium Total Bilirubin AST ALT Alkaline Phosphatase Total Protein Albumin Urine Color Ltyellow Urine Appearance Clear Urine pH 6.0 Ur Specific [place] 1.015 Urine Protein Negative Urine Glucose (UA) Negative Urine Ketones Negative Urine Blood Negative Urine Nitrite Negative Urine Bilirubin Negative Urine Urobilinogen Negative Ur Leukocyte Esterase Trace Urine WBC (Auto) 5 Urine RBC (Auto) 1 Ur Epithelial Cells Rare Urine Bacteria Rare Urine Mucus Rare RPR Titer PE: ALERT AND ORIENTED X 3 SKIN WARM AND DRY CAR S1S2 RESP CTA BL EXT FULL ROM PSYCH MILD ANXIETY, PACING IN HALLWAY Assessment: 02/06/18 10:01 WITHDRAWAL SYNDROME Plan: CONTINUE DETOX ORDERED ENCOURAGE ORAL FLUIDS CONTINUE TO MONITOR
[2018-02-06] MEDS: PRENATAL VITAMINS W/ FOLIC ACID TABLET (FP) PO SCH (10:07)
[2018-02-06] MEDS: NICOTINE 14 MG/24 HOURS TOPICAL PATCH TD SCH (10:07)
[2018-02-06] MEDS: CARVEDILOL 6.25 MG TABLET (FP) PO SCH ×2 (10:07→22:15)
[2018-02-06] MEDS: TACROLIMUS TP SCH (10:07)
[2018-02-06] MEDS: BETAMETHASONE DIP 0.05% TP LOTION 30 ML BOTTLE TP SCH ×2 (10:09→22:15)
[2018-02-06] MEDS: SACUBITRIL/VALSARTAN 49 MG-51 MG TABLET PO SCH (10:09)
[2018-02-06] MEDS ORDERED: COLLOIDAL OATMEAL 1 BAR EACH TP PRN (16:37)
[2018-02-06] MEDS: NICOTINE POLACRILEX 2 MG GUM BC PRN (19:07)
[2018-02-06] MEDS: ZOLPIDEM TARTRATE 5 MG TABLET PO PRN (22:15)
[2018-02-06] MEDS: THIAMINE HCL 100 MG TABLET (FP) PO SCH (22:15)
[2018-02-06] MEDS: chlordiazePOXIDE 5 MG CAPSULE PO SCH (22:15)
[2018-02-07] MEDS: chlordiazePOXIDE 5 MG CAPSULE PO SCH ×2 (05:50→10:05)
[2018-02-07 09:04] VITALS: BP 127/90; PULSE 72; TEMP 97.1
[2018-02-07] MEDS: CARVEDILOL 6.25 MG TABLET (FP) PO SCH (10:05)
[2018-02-07] MEDS: PRENATAL VITAMINS W/ FOLIC ACID TABLET (FP) PO SCH (10:05)
[2018-02-07] MEDS: BETAMETHASONE DIP 0.05% TP LOTION 30 ML BOTTLE TP SCH (10:07)
[2018-02-07] MEDS: SACUBITRIL/VALSARTAN 49 MG-51 MG TABLET PO SCH (10:07)
[2018-02-07] MEDS: NICOTINE 14 MG/24 HOURS TOPICAL PATCH TD SCH (10:08)
[2018-02-07] MEDS: TACROLIMUS TP SCH (10:08)
--- NOTE | 2018-02-07 11:16 | DS ---
[facility] Detox Discharge Summary Admission Date: 02/04/18 Discharge Date: 02/07/18 - History Present History: Alcohol Dependence - Physical Exam Results Vital Signs: Vital Signs Temperature 97.1 F L 02/07/18 09:03 Pulse Rate 72 02/07/18 09:03 Respiratory Rate 16 02/07/18 09:03 Blood Pressure 127/90 02/07/18 09:03 O2 Sat by Pulse Oximetry (%) Pertinent Admission Physical Exam Findings: PATIENT TOLERATED DETOX WITHOUT ADVERSE EVENT. PATIENT MEDICALL STABE. PRESENTS ALERT AND ORIENTED X 3, AMB AD [place], SKIN WARM AND DRY. DENIES SI/HI. PATIENT ACCEPTED REHAB REFERRAL TO [facility]. PATIENT ENCOURAGED TO COMPLETE REHAB TP PREVENT RELAPSE. DISCHARGE INSTRUCTIONS GIVEN TO PATIENT BY STAFF. - Treatment Hospital Course: Detox Protocol Followed, Detoxed Safely, Responded well, Discharged Condition Good, Rehab Referral Accepted - Medication Discharge Medications: Ambulatory Orders Betamethasone/Propylene Glyc [Betamethasone Dp Aug 0.05% Lot] 30 ml TP BID 02/04 Carvedilol [Coreg -] 6.25 mg PO BID 02/04/18 Sacubitril/Valsartan [Entresto 49 mg-51 mg Tablet] 1 each PO DAILY 02/04/18 Tacrolimus [Protopic] 100 gm TP DAILY 02/04/18 - Diagnosis (1) Alcohol dependence with uncomplicated withdrawal Current Visit: Yes Status: Resolved - AMA Did Patient Leave Against Medical Advice: No
[2018-02-07] MEDS ORDERED: chlordiazePOXIDE HCL 10 MG CAPSULE PO SCH (23:00)
== END 2018-02-07 11:33 | disposition home or self-care (01) | DRG 775 ==
LOC: YASAS 12:57 → Y3N 16:05
PROC: HZ2ZZZZ Detoxification Services for Substance Abuse Treatment (ICD-10-PCS; principal; 2018-02-04)
DX: F10.230 Alcohol dependence with withdrawal, uncomplicated (principal); F17.210 Nicotine dependence, cigarettes, uncomplicated; I10 Essential (primary) hypertension; I50.9 Heart failure, unspecified; G47.00 Insomnia, unspecified; E86.0 Dehydration; L30.9 Dermatitis, unspecified
CPT/HCPCS: 36415; 80053; 81003; 81015; 85027; 86593; 93005; 93010

== ENCOUNTER 2020-04-16 10:55 | Inpatient (IN) | payer OTHER ==
[2020-04-16 11:14] VITALS: BMI 21.2
[2020-04-16] MEDS ORDERED: NICOTINE POLACRILEX 2 MG GUM BUC PRN (12:03)
[2020-04-16] MEDS ORDERED: MAGNESIUM CITRATE 300 ML BOTTLE PO PRN (12:03)
[2020-04-16] MEDS ORDERED: IBUPROFEN 400 MG TABLET (FP) PO PRN (12:03)
[2020-04-16] MEDS ORDERED: ONDANSETRON *ODT* 4 MG TABLET SL PRN (12:03)
[2020-04-16] MEDS ORDERED: ACETAMINOPHEN 325 MG TABLET (FP) PO PRN ×2 (12:03)
[2020-04-16] MEDS ORDERED: MAGNESIUM HYDROX 2400MG/30ML ORAL SUSPENSION 30 ML CUP PO PRN (12:03)
[2020-04-16] MEDS ORDERED: chlordiazePOXIDE HCL 25 MG CAPSULE PO PRN (12:03)
[2020-04-16] MEDS ORDERED: BISMUTH SUBSALICYLATE 524 MG/30 ML UD PO PRN (12:03)
[2020-04-16] MEDS ORDERED: METHOCARBAMOL 500 MG TABLET PO PRN (12:03)
[2020-04-16] MEDS ORDERED: hydrOXYzine PAMOATE 25 MG CAPSULE (FP) PO PRN (12:03)
[2020-04-16] MEDS ORDERED: MAG HYDROX/AL HYDROX/SIMETH 30 ML UNIT-DOSE CUP PO PRN (12:03)
[2020-04-16] MEDS ORDERED: MENTHOL/PHENOL 1 EACH UD MM PRN (12:03)
[2020-04-16] MEDS: chlordiazePOXIDE HCL 25 MG CAPSULE PO SCH ×2 (17:51→22:04)
[2020-04-16] MEDS ORDERED: CARVEDILOL 3.125 MG TABLET (FP) PO SCH (22:00)
[2020-04-16] MEDS: ATORVASTATIN CA 20 MG TABLET (FP) PO SCH (22:03)
[2020-04-16] MEDS: SACUBITRIL/VALSARTAN 49 MG-51 MG TABLET PO SCH (22:03)
[2020-04-16] MEDS: MELATONIN 5 MG TABLETS PO SCH (22:03)
[2020-04-16] MEDS: THIAMINE HCL 100 MG TABLET (FP) PO SCH (22:04)
[2020-04-16] MEDS: CARVEDILOL 6.25 MG TABLET (FP) PO SCH (23:32)
[2020-04-17] MEDS: chlordiazePOXIDE HCL 25 MG CAPSULE PO SCH ×2 (05:27→10:37)
[2020-04-17] MEDS ORDERED: FLU VACCINE (FLULAVAL) PF 60 MCG/0.5 ML SYRINGE 2020-2021 IM ONE (10:00)
[2020-04-17] MEDS: ESCITALOPRAM OXALATE 10 MG TABLET PO SCH (10:36)
[2020-04-17] MEDS: CARVEDILOL 6.25 MG TABLET (FP) PO SCH ×2 (10:36→22:10)
[2020-04-17] MEDS: SACUBITRIL/VALSARTAN 49 MG-51 MG TABLET PO SCH ×2 (10:36→22:10)
[2020-04-17 10:38] LABS: HEMATOCRIT 42.1 % (35.4-49); HEMOGLOBIN 14.4 GM/dL (11.7-16.9); MCH 33.4 pg (25.7-33.7); MCHC 34.2 g/dl (32.0-35.9); MEAN CELL VOLUME 97.6 fl (80-96); PLATELET COUNT 152 K/MM3 (134-434); RBC 4.31 M/mm3 (4.00-5.60); RDW 16.7 % (11.9-15.9); WHITE BLOOD COUNT 2.7 K/mm3 (4.0-10.0)
[2020-04-17] MEDS: PRENATAL VITAMINS W/ FOLIC ACID TABLET (FP) PO SCH (10:38)
[2020-04-17] MEDS: NICOTINE 7 MG/24 HOURS TOPICAL PATCH TD SCH (10:38)
[2020-04-17 10:42] LABS: CALCIUM 9.5 mg/dL (8.5-10.1)
[2020-04-17 10:44] LABS: ALBUMIN 4.3 g/dl (3.4-5.0); BLOOD UREA NITROGEN 10.5 mg/dL (7-18)
[2020-04-17 10:47] LABS: BILIRUBIN,TOTAL 2.7 mg/dL (0.2-1); CREATININE 1.1 mg/dL (0.55-1.3)
[2020-04-17 10:48] LABS: TOT PROT 8.1 g/dl (6.4-8.2)
[2020-04-17] MEDS ORDERED: POTASSIUM CHLORIDE TABS 20 MEQ TABLET.ER (FP) PO ONE ×2 (11:57→17:00)
[2020-04-17] MEDS ORDERED: LORazepam 1 MG TABLET PO PRN (12:07)
[2020-04-17] MEDS: LORazepam 1 MG TABLET PO SCH ×2 (17:38→22:10)
[2020-04-17] MEDS: THIAMINE HCL 100 MG TABLET (FP) PO SCH (22:10)
[2020-04-17] MEDS: ATORVASTATIN CA 20 MG TABLET (FP) PO SCH (22:10)
[2020-04-17] MEDS: MELATONIN 5 MG TABLETS PO SCH (22:15)
[2020-04-18] MEDS ORDERED: chlordiazePOXIDE HCL 25 MG CAPSULE PO SCH (05:00)
[2020-04-18] MEDS: LORazepam 1 MG TABLET PO SCH ×4 (05:45→22:09)
[2020-04-18 09:13] LABS: HIV INTERPRETATION NEGATIVE (NEGATIVE)
[2020-04-18] MEDS: ESCITALOPRAM OXALATE 10 MG TABLET PO SCH (10:11)
[2020-04-18] MEDS: CARVEDILOL 6.25 MG TABLET (FP) PO SCH ×2 (10:11→22:09)
[2020-04-18] MEDS: NICOTINE 7 MG/24 HOURS TOPICAL PATCH TD SCH (10:12)
[2020-04-18] MEDS: SACUBITRIL/VALSARTAN 49 MG-51 MG TABLET PO SCH ×2 (10:12→22:09)
[2020-04-18] MEDS: PRENATAL VITAMINS W/ FOLIC ACID TABLET (FP) PO SCH (10:12)
[2020-04-18 10:28] LABS: ALBUMIN 3.6 g/dl (3.4-5.0)
[2020-04-18 10:29] LABS: BASO % 0.5 % (0-2.0); EOS % 6.6 % (0-4.5); HEMATOCRIT 38.5 % (35.4-49); HEMOGLOBIN 13.1 GM/dL (11.7-16.9); LYMPH % 24.2 % (8-40); MCH 33.7 pg (25.7-33.7); MEAN CELL VOLUME 99.3 fl (80-96); MEAN PLT VOLUME 10.3 fl (7.5-11.1); MONO % 9.7 % (3.8-10.2); PLATELET COUNT 119 K/MM3 (134-434); RBC 3.88 M/mm3 (4.00-5.60); RDW 17.1 % (11.9-15.9)
[2020-04-18 10:32] LABS: BILIRUBIN,DIRECT 0.3 mg/dL (0.0-0.2); BILIRUBIN,TOTAL 1.1 mg/dL (0.2-1)
[2020-04-18 10:33] LABS: TOT PROT 7.1 g/dl (6.4-8.2)
[2020-04-18] MEDS: BETAMETHASONE DIPR 0.05% CREAM 15 GM TUBE TP SCH ×2 (15:51→22:09)
[2020-04-18] MEDS: THIAMINE HCL 100 MG TABLET (FP) PO SCH (22:09)
[2020-04-18] MEDS: ATORVASTATIN CA 20 MG TABLET (FP) PO SCH (22:09)
[2020-04-18] MEDS: MELATONIN 5 MG TABLETS PO SCH (22:10)
[2020-04-19] MEDS ORDERED: chlordiazePOXIDE HCL 10 MG CAPSULE PO PRN
[2020-04-19] MEDS ORDERED: chlordiazePOXIDE HCL 10 MG CAPSULE PO SCH (05:00)
[2020-04-19] MEDS: LORazepam 0.5 MG TABLET PO SCH ×4 (05:07→22:05)
[2020-04-19] MEDS: ESCITALOPRAM OXALATE 10 MG TABLET PO SCH (10:02)
[2020-04-19] MEDS: SACUBITRIL/VALSARTAN 49 MG-51 MG TABLET PO SCH ×2 (10:03→22:04)
[2020-04-19] MEDS: NICOTINE 7 MG/24 HOURS TOPICAL PATCH TD SCH (10:03)
[2020-04-19] MEDS: BETAMETHASONE DIPR 0.05% CREAM 15 GM TUBE TP SCH ×2 (10:03→22:05)
[2020-04-19] MEDS: CARVEDILOL 6.25 MG TABLET (FP) PO SCH ×2 (10:03→22:05)
[2020-04-19] MEDS: PRENATAL VITAMINS W/ FOLIC ACID TABLET (FP) PO SCH (10:04)
[2020-04-19] MEDS: THIAMINE HCL 100 MG TABLET (FP) PO SCH (22:04)
[2020-04-19] MEDS: ATORVASTATIN CA 20 MG TABLET (FP) PO SCH (22:04)
[2020-04-19] MEDS: MELATONIN 5 MG TABLETS PO SCH (22:05)
[2020-04-20] MEDS ORDERED: LORazepam 0.5 MG TABLET PO PRN
[2020-04-20] MEDS ORDERED: chlordiazePOXIDE HCL 10 MG CAPSULE PO SCH (05:00)
[2020-04-20] MEDS ORDERED: LORazepam 0.5 MG TABLET PO ONE (05:00)
[2020-04-20 09:07] VITALS: BP 129/77; PULSE 72; TEMP 98
[2020-04-20] MEDS: SACUBITRIL/VALSARTAN 49 MG-51 MG TABLET PO SCH (09:43)
[2020-04-20] MEDS: ESCITALOPRAM OXALATE 10 MG TABLET PO SCH (09:43)
[2020-04-20] MEDS: CARVEDILOL 6.25 MG TABLET (FP) PO SCH (09:43)
[2020-04-20] MEDS: PRENATAL VITAMINS W/ FOLIC ACID TABLET (FP) PO SCH (09:45)
[2020-04-21] MEDS ORDERED: chlordiazePOXIDE HCL 10 MG CAPSULE PO ONE (05:00)
== END 2020-04-20 09:55 | disposition home or self-care (01) | DRG 775 ==
LOC: YASAS 10:55 → Y6N 12:30
PROVIDERS: ADMIT Allergy & Immunology; ATTEND Allergy & Immunology
PROC: HZ2ZZZZ Detoxification Services for Substance Abuse Treatment (ICD-10-PCS; principal; 2020-04-16)
DX: F10.230 Alcohol dependence with withdrawal, uncomplicated (principal); F17.210 Nicotine dependence, cigarettes, uncomplicated; F32.9 Major depressive disorder, single episode, unspecified; I10 Essential (primary) hypertension; I50.9 Heart failure, unspecified; G47.00 Insomnia, unspecified; L30.9 Dermatitis, unspecified; E87.6 Hypokalemia; R94.5 Abnormal results of liver function studies; D72.819 Decreased white blood cell count, unspecified
CPT/HCPCS: 36415; 80053; 80076; 82947; 82962; 84132; 85025; 85027; 86780; 87389; 93005; 93010; C9803; G0008; Q2036; U0003